=== PATIENT | female | born 1955 | race Caucasian/White ===

== ENCOUNTER 2020-02-17 09:15 | Outpatient (REF) | payer OTHER, SELFPAY | END 2020-02-17 09:16 | disposition home or self-care (01) | LOC: HO.WFDLNP 09:15 | PROVIDERS: Visit Provider Family Medicine | DX: Z20.828 Contact with and (suspected) exposure to other viral communicable diseases (principal) | CPT/HCPCS: U0003 ==

== ENCOUNTER 2021-03-04 07:10 | Outpatient (REF) | payer MEDICARE, SELFPAY ==
[2021-03-04 10:34] LABS: MANUAL DIFF FLAG NO
[2021-03-04 10:41] LABS: Basophils Percent Auto 0.6 % (0-2); Eosinophils Absolute Auto 0.2 X10*3/uL (0.0-0.4); Eosinophils Percent Auto 4.3 % (0-4); Hematocrit 42.6 % (37.0-47.0); Hemoglobin 13.6 g/dl (12.0-16.0); Imm Gran Abs Auto 0.01 X10*3/uL (0.00-0.03); Imm Gran Pct Auto 0.2 % (0.0-0.4); Lymphocytes Absolute Auto 1.4 X10*3/uL (1.2-4.9); Lymphocytes Percent Auto 26.3 % (20-40); Mean Corpuscular HGB Conc 31.9 g/dl (31.0-35.0); Mean Platelet Volume 9.6 fL (9.4-12.3); Monocytes Absolute Auto 0.6 X10*3/uL (0.1-1.2); Monocytes Percent Auto 10.6 % (2-11); Platelet Count 216 X10*3/uL (160-400); Red Blood Count 4.53 X10*6/uL (4.20-5.50); Red Cell Distribution Width 13.8 % (11.0-16.0); White Blood Count 5.2 X10*3/uL (4.8-10.8)
[2021-03-04 11:13] LABS: Alanine Aminotransferase 15 U/L (0-31); Albumin Level 4.2 g/dL (3.5-5.0); Alkaline Phosphatase 64 U/L (39-117); Anion Gap 12 (12-20); Aspartate Amino Transferase 16 U/L (5-31); Bilirubin Total 0.5 mg/dL (0.0-1.0); Blood Urea Nitrogen 21 mg/dL (9-16); Calcium 9.5 mg/dL (8.4-10.2); Carbon Dioxide 28 mmol/L (22-29); Chloride 107 mmol/L (96-108); Cholesterol 178 mg/dL; Estimated Glomerular Filt Rate 54; Glucose Fasting 103 mg/dL (60-99); HDL Cholesterol 41 mg/dL; LDL Cholesterol Calculated 113 mg/dl; Potassium 4.7 mmol/L (3.3-5.1); Sodium 142 mmol/L (135-145); Total Protein 6.7 g/dL (6.5-8.0); Triglycerides 124 mg/dL
[2021-03-04 11:27] LABS: Free T4 (Free Thyroxine) 1.03 ng/dL (0.71-1.85); Vitamin D 25-OH Total 21.5 ng/mL (>30)
[2021-03-05 16:02] LABS: Calcium (PTHI) 9.3 mg/dL (8.6-10.4); PTHI 82 pg/mL (14-64)
[2021-03-06 02:41] LABS: Triiodothyronine T3 Total 143 ng/dL (76-181)
== END 2021-03-04 07:11 | disposition home or self-care (01) ==
LOC: HO.WFDLDS 07:10
PROVIDERS: Visit Provider Family Medicine
DX: Z00.00 Encounter for general adult medical examination without abnormal findings (principal); E03.9 Hypothyroidism, unspecified; E55.9 Vitamin D deficiency, unspecified; N20.0 Calculus of kidney
CPT/HCPCS: 36415; 80053; 80061; 82306; 83970; 84100; 84439; 84443; 84480; 85025

== ENCOUNTER 2021-06-14 08:19 | Outpatient (REF) | payer MEDICARE, SELFPAY ==
[2021-06-14 12:09] LABS: Anion Gap 11 (12-20); Blood Urea Nitrogen 24 mg/dL (9-16); Calcium 9.3 mg/dL (8.4-10.2); Carbon Dioxide 27 mmol/L (22-29); Chloride 107 mmol/L (96-108); Estimated Glomerular Filt Rate 59; Glucose Fasting 97 mg/dL (60-99); Potassium 4.1 mmol/L (3.3-5.1); Sodium 141 mmol/L (135-145)
[2021-06-14 12:21] LABS: Estimated Average Glucose 117 mg/dL; Hemoglobin A1c % 5.7 %
[2021-06-14 12:31] LABS: Vitamin D 25-OH Total 26.3 ng/mL (>30)
== END 2021-06-14 08:20 | disposition home or self-care (01) ==
LOC: HO.WFDLDS 08:19
PROVIDERS: Visit Provider Family Medicine
DX: E55.9 Vitamin D deficiency, unspecified (principal); R73.01 Impaired fasting glucose
CPT/HCPCS: 36415; 80048; 82306; 83036

== ENCOUNTER 2021-09-14 10:39 | Outpatient (REF) | payer MEDICARE, SELFPAY ==
[2021-09-14 14:05] LABS: Estimated Average Glucose 117 mg/dL; Hemoglobin A1c % 5.7 %
[2021-09-14 14:41] LABS: Vitamin D 25-OH Total 32.2 ng/mL (>30)
== END 2021-09-14 10:40 | disposition home or self-care (01) ==
LOC: HO.WFDLDS 10:39
PROVIDERS: Visit Provider Family Medicine
DX: R73.01 Impaired fasting glucose (principal); E55.9 Vitamin D deficiency, unspecified
CPT/HCPCS: 36415; 82306; 83036

== ENCOUNTER → 2021-09-30 07:09 | Outpatient (REF) | payer MEDICARE, SELFPAY ==
--- NOTE | 2021-09-30 07:11 | HM_ITS ---
Conclusion: 1. Patient was monitored for total period of 5 days and 23 hours 2. Baseline was normal sinus rhythm with average heart of 62 beats per minute 3. 16 short runs of supraventricular ectopy ache consistent with most likely atrial tachycardia, longest of 12 beats 4. Total of 2016 PACs accounting for 0.32% account for occasional PACs 5. No patient reported events MTDD
== END ==
LOC: HO.CARD 07:09
PROVIDERS: Visit Provider Family Medicine
DX: R00.2 Palpitations (principal)
CPT/HCPCS: 93242

== ENCOUNTER 2021-11-01 12:06 | Outpatient (REF) | payer MEDICARE, SELFPAY ==
[2021-11-01 13:42] LABS: Anion Gap 13 (12-20); Blood Urea Nitrogen 24 mg/dL (9-16); Calcium 9.3 mg/dL (8.4-10.2); Carbon Dioxide 28 mmol/L (22-29); Chloride 105 mmol/L (96-108); Estimated Glomerular Filt Rate > 60; Glucose Random 100 mg/dL (60-115); Phosphorus 3.3 mg/dL (2.7-4.5); Potassium 4.5 mmol/L (3.3-5.1); Sodium 141 mmol/L (135-145)
[2021-11-01 14:04] LABS: Vitamin D 25-OH Total 31.4 ng/mL (>30)
[2021-11-02 12:48] LABS: Calcium (PTHI) 9.3 mg/dL (8.6-10.4); PTHI 67 pg/mL (16-77)
== END 2021-11-01 12:07 | disposition home or self-care (01) ==
LOC: HO.WFDLDS 12:06
PROVIDERS: PCP Family Medicine; Visit Provider Internal Medicine Endocrinology, Diabetes & Metabolism
DX: E21.3 Hyperparathyroidism, unspecified (principal)
CPT/HCPCS: 36415; 80048; 82306; 83970; 84100

== ENCOUNTER → 2022-02-07 14:03 | Outpatient (BNVA) | payer MEDICARE, SELFPAY | PROVIDERS: PCP Family Medicine; Referring Provider Family Medicine; Visit Provider Internal Medicine | DX: I49.1 Atrial premature depolarization (principal); Z82.49 Family history of ischemic heart disease and other diseases of the circulatory system | CPT/HCPCS: 93005; 99202 ==

== ENCOUNTER → 2022-02-15 10:14 | Outpatient (REF) | payer MEDICARE, SELFPAY ==
--- NOTE | 2022-02-15 10:23 | CA_ITS ---
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 The calculated ejection fraction is 58% by biplane method. - No obvious valvular pathology seen on this study. Findings Left Ventricle Normal left ventricular cavity size. The left ventricular systolic function is normal. The calculated ejection fraction is 58% by biplane method. There is no evidence of regional wall motion abnormalities. Diastolic function is normal for age. There is mild septal asymmetric hypertrophy. Right Ventricle Normal right ventricular cavity size and systolic function. Atria Top-normal left atrial size. The right atrium is normal in size. Aortic Valve There is a normal trileaflet aortic valve. There is no aortic valve stenosis. There is trace (trivial) aortic valve regurgitation. Mitral Valve The mitral valve appears normal. There is no mitral valve regurgitation. There is no mitral valve stenosis. Pulmonic Valve The pulmonic valve is likely normal. There is trace pulmonic valve regurgitation. Tricuspid Valve There is trace tricuspid valve regurgitation. There is no evidence of pulmonary hypertension. Great Vessels The asc aorta is normal in size. Venous The inferior vena cava is normal in size and collapses greater than 50% with inspiration. Pericardium/Pleural There is no evidence of pericardial effusion. Prior Study Comparison No prior study available for comparison. Recommendations, Care & Conclusions No obvious valvular pathology seen on this study. Measurements 2D Linear Measurements IVSd: 1.07 0.6-0.9/0.6-1.0 cm LVIDd: 3.93 3.9-5.3/4.2-5.9 cm LVIDd Index: 2.12 2.4-3.2/2.2-3.1 cm/m2 LVIDs: 2.27 2.0-3.6 cm LVPWd: 0.88 0.7-1.1 cm LA Diam: 2.70 2.7-3.8/3.0-4.0 cm LAIDs Index: 1.46 1.5-2.3 cm/m2 LV Mass: 148.63 67-162/88-224 g LV Mass Index: 80.34 43-95/49-115 g/m2 LVOT Diam: 2.00 3.0+(-)1.3 cm 2D Systolic Function EF 4C: 55.20 >55% EF 2C: 60.10 >55% EF BiP: 57.70 >55% Mitral Valve MV Pk E: 0.91 MV PK A: 0.93 MV Decel Time: 223.00 E/A: 1.00 E'Lateral: 5.98 E'Medial: 5.66 E/E' Med: 16.00 E/E' Lat: 15.20 PHT: 65.00 MVA PHT: 3.38 Decel Daniels: 4.08 Aortic Valve AoV Pk Taras: 1.12 AoV Mn Taras: 0.79 AoV VTI: 0.26 AoV Pk Grad: 5.00 Aov Mn Grad: 3.00 ARY Cont.VTI: 2.33 LVOT LVOT Pk Taras: 0.93 LVOT Mn Taras: 0.61 LVOT VTI: 0.19 LVOT Pk Grad: 3.00 LVOT Mn Grad: 2.00 LVOT Diam: 2.00 LVOT Area: 3.14 Diastolic Function MV Pk E: 0.91 MV Pk A: 0.93 E/A: 1.00 E'Medial: 5.66 E/E' Med: 16.00 E' Laterial: 5.98 E/E' Lat: 15.20 Right Ventricle TAPSE (mm): 22.00 TVS' Taras: 11.50 Tricuspid Valve TR Pk Taras: 2.46 TR Pk Grad: 24.00 RA Press: 3.00 RVSP: 27.00 Great Vessels Aorta Sinus of Valsalva: 3.73 2.0-3.[address] Ridge: 2.78 1.7-3.4 cm Ao Asc: 3.60 2.1-3.4 cm Ao Arch: 3.40 Updated in Other Vendor System with Status of Final Fan Moreno MD electronically signed on 02/17/2022 11:35:03 AM with status of Final
== END ==
LOC: HO.CARD 10:14
PROVIDERS: Visit Provider Internal Medicine
DX: I49.1 Atrial premature depolarization (principal)
CPT/HCPCS: 93306

== ENCOUNTER 2022-05-02 09:44 | Outpatient (REF) | payer MEDICARE, SELFPAY ==
[2022-05-02 12:08] LABS: Alanine Aminotransferase 14 U/L (0-31); Albumin Level 4.2 g/dL (3.5-5.0); Alkaline Phosphatase 62 U/L (39-117); Anion Gap 14 (12-20); Aspartate Amino Transferase 17 U/L (5-31); Bilirubin Total 0.8 mg/dL (0.0-1.0); Blood Urea Nitrogen 22 mg/dL (9-16); Calcium 9.3 mg/dL (8.4-10.2); Carbon Dioxide 25 mmol/L (22-29); Chloride 107 mmol/L (96-108); Cholesterol 184 mg/dL; Estimated Glomerular Filt Rate > 60; Glucose Fasting 97 mg/dL (60-99); HDL Cholesterol 48 mg/dL; LDL Cholesterol Calculated 109 mg/dl; Potassium 4.4 mmol/L (3.3-5.1); Sodium 142 mmol/L (135-145); Total Protein 6.5 g/dL (6.5-8.0); Triglycerides 138 mg/dL
[2022-05-02 12:24] LABS: TSH reflex Free T4 1.94 uIU/mL (0.32-4.0)
== END 2022-05-02 09:45 | disposition home or self-care (01) ==
LOC: HO.WFDLDS 09:44
PROVIDERS: Visit Provider Family Medicine
DX: Z00.00 Encounter for general adult medical examination without abnormal findings (principal)
CPT/HCPCS: 36415; 80053; 80061; 84443

== ENCOUNTER 2022-05-04 11:47 | Outpatient (REF) | payer MEDICARE, SELFPAY ==
[2022-05-04 14:04] LABS: Appearance Urine Clear; Color Urine Yellow; Glucose Urine UA Negative (Negative); Leukocyte Esterase Urine Moderate (2+) (Negative); Nitrite Urine Negative (Negative); UMIC TRIGGER UA YES; Urine Blood Negative (Negative); Urine Ketones Negative (Negative); Urine Protein Negative (Neg-Trace)
[2022-05-04 14:25] LABS: Bacteria Urine None Seen (None Seen); Hyaline Casts Urine 0-2 /LPF (0-2); RBC Urine 0-2 /HPF (0-2); WBC Urine 0-5 /HPF (0-5)
[2022-05-04 14:27] LABS: Creatinine Urine 102.24 mg/dL; Microalbum/Creatinine Ratio Ur 5.8 ug/mg cr
== END 2022-05-04 11:48 | disposition home or self-care (01) ==
LOC: HO.WFDLNP 11:47
PROVIDERS: Visit Provider Family Medicine
DX: I10 Essential (primary) hypertension (principal)
CPT/HCPCS: 81001; 81003; 82043

== ENCOUNTER 2022-06-09 13:00 | Outpatient (RCR) | payer MEDICARE, SELFPAY ==
[2022-04-04 09:02] VITALS: PULSE 75; O2SAT 98
== END 2023-04-20 08:47 | disposition home or self-care (01) ==
LOC: HO.PTWFD 13:00
PROVIDERS: PCP Family Medicine; Visit Provider Family Medicine
DX: M25.512 Pain in left shoulder (principal)
CPT/HCPCS: 97035; 97110; 97140; 97150; 97161; 97535

== ENCOUNTER → 2022-06-14 13:22 | Outpatient (BNVA) | payer MEDICARE, SELFPAY | PROVIDERS: PCP Family Medicine; Referring Provider Family Medicine; Visit Provider Nurse Practitioner Family | DX: I25.10 Atherosclerotic heart disease of native coronary artery without angina pectoris (principal); I25.84 Coronary atherosclerosis due to calcified coronary lesion; R06.02 Shortness of breath; I10 Essential (primary) hypertension; I47.1 Supraventricular tachycardia; E78.5 Hyperlipidemia, unspecified; R73.03 Prediabetes; Z82.49 Family history of ischemic heart disease and other diseases of the circulatory system | CPT/HCPCS: 99212 ==

== ENCOUNTER 2022-07-06 11:44 | Outpatient (REF) | payer MEDICARE, SELFPAY ==
[2022-07-06 14:52] LABS: Albumin Level 4.1 g/dL (3.5-5.0); Anion Gap 12 (12-20); Blood Urea Nitrogen 22 mg/dL (9-16); Carbon Dioxide 25 mmol/L (22-29); Chloride 109 mmol/L (96-108); Estimated Glomerular Filt Rate > 60; Glucose Random 131 mg/dL (60-115); Phosphorus 2.8 mg/dL (2.7-4.5); Potassium 4.3 mmol/L (3.3-5.1); Sodium 142 mmol/L (135-145)
[2022-07-06 15:01] LABS: Vitamin D 25-OH Total 33.5 ng/mL (>30)
[2022-07-08 14:58] LABS: Calcium (PTHI) 9.2 mg/dL (8.6-10.4); PTHI 51 pg/mL (16-77)
== END 2022-07-06 11:45 | disposition home or self-care (01) ==
LOC: HO.WFDLDS 11:44
PROVIDERS: Absent Provider Family Medicine; Visit Provider Internal Medicine Endocrinology, Diabetes & Metabolism
DX: E21.0 Primary hyperparathyroidism (principal)
CPT/HCPCS: 36415; 80048; 82040; 82306; 83970; 84100

== ENCOUNTER 2022-07-22 12:52 | Outpatient (REF) | payer MEDICARE, SELFPAY ==
[2022-07-22 13:57] LABS: Hematocrit 41.8 % (37.0-47.0); Hemoglobin 13.4 g/dl (12.0-16.0); Mean Corpuscular HGB Conc 32.1 g/dl (31.0-35.0); Mean Corpuscular Hemoglobin 29.7 pg (27.0-33.0); Mean Corpuscular Volume 92.7 fL (80.0-98.0); Platelet Count 188 X10*3/uL (160-400); Red Blood Count 4.51 X10*6/uL (4.20-5.50); Red Cell Distribution Width 13.9 % (11.0-16.0); White Blood Count 7.5 X10*3/uL (4.8-10.8)
[2022-07-22 14:38] LABS: Anion Gap 11 (12-20); Blood Urea Nitrogen 24 mg/dL (9-16); Carbon Dioxide 28 mmol/L (22-29); Chloride 107 mmol/L (96-108); Estimated Glomerular Filt Rate > 60; Glucose Random 79 mg/dL (60-115); Potassium 4.5 mmol/L (3.3-5.1); Sodium 141 mmol/L (135-145)
== END 2022-07-22 12:53 | disposition home or self-care (01) ==
LOC: HO.WFDLDS 12:52
PROVIDERS: Visit Provider Nurse Practitioner Family
DX: R42 Dizziness and giddiness (principal)
CPT/HCPCS: 36415; 80048; 85027

== ENCOUNTER 2022-08-29 09:00 | Outpatient (RCR) | payer MEDICARE, SELFPAY ==
[2022-08-18 08:04] VITALS: PULSE 63; O2SAT 100
--- NOTE | 2022-08-30 15:46 | MHC.PT.EP ---
[facility] [place] [facility] [place] [facility] [place] [facility] [address] Aravind Sims [address] [phone] F: [phone] F: [phone] F: [phone] F: [phone] Physical Therapy Plan of Care Date of Evaluation: Date of Surgery: Diagnosis: Dizziness and Giddiness referred by Dr. Palacios PCP Assessment: Pt is a 67 y/o female with PMH significant for supraventricular tachycardia, HTN, high cholesterol, referred to PT for dizziness and giddiness date of referral on 08/01/22 referred to PT from PCP Dr. Palacios. Pt exhibits positive (+) R Hallpike with upbeat torsional nystagmus, impaired confidence with ambulation, decreased tolerance for functional mobility. Pt verbalizes use of topical pain medication for tooth pain which she has since stopped, questions this as factor contributing to her symptoms early on. Pt would benefit from attending skilled PT services at a frequency of 1x/week x 4 weeks to address impairment, implement HEP, and restore mobility for daily function. Post evaluation, Radha was guided through R Anthony maneuver with good tolerance, (+) reduction in sx with repeated attempts of treatment in the office. She will be seen in the office in a few days to assess her response and will likely be educated in a the same home program to address R posterior canal otolith repositioning. She verbalized relief of sx post evaluation and education of findings. Frequency and Duration: The patient will be seen 1x/week x 4 weeks Short Term Goals: 1. Initiate HEP. 2. Negative Hallpike testing. 3. Resume household tasks MOD I no vertigo sx. Supervisor Cell Efficiency Goals: 1. I HEP/self care. 2. Negative Hallpike testing. 3. Resume walking program MOD I. Treatment Plan: Modalities to reduce pain, spasms and effusion. Manual therapy to restore motion and function. Therapeutic exercise to improve strength and flexibility. Neuromuscular re-education for posture and balance. Therapeutic activities to return to functional activities of daily living. Electronically signed by: Guadalupe Elias, PT, DPT Please sign and return to therapist. Thank you for your referral.
== END 2023-03-14 11:21 | disposition home or self-care (01) ==
LOC: HO.PTWFD 09:00
PROVIDERS: PCP Family Medicine; Visit Provider Family Medicine
DX: R42 Dizziness and giddiness (principal)
CPT/HCPCS: 97110; 97162; 97535

== ENCOUNTER 2022-09-28 09:45 | Outpatient (REF) | payer MEDICARE, SELFPAY | END 2022-09-28 09:46 | disposition home or self-care (01) | LOC: HO.WFDLDS 09:45 | PROVIDERS: Visit Provider Nurse Practitioner Family | DX: E78.5 Hyperlipidemia, unspecified (principal) | CPT/HCPCS: 36415; 80061 ==

== ENCOUNTER 2022-10-03 11:00 | Outpatient (AMB) | payer MEDICARE, SELFPAY ==
--- NOTE | 2022-10-03 11:20 | MHC.OFFVIS ---
Intake Vital Signs 10/03/22 11:21 Height 5 ft 1 in Weight 199 lb 4.766 oz BMI 37.7 BP 140/76 H Blood Pressure Location Lt brachial Position Sitting Pulse 64 Intake Visit Reasons: 3 month follow up Intake Note: 3 month follow up Lieutenant General Required: No Accompanied by: Self / Same As Patient Allergies No Known Allergies Allergy (Verified 10/03/22 11:21) Medication List - Last Reconciled 10/03/22 by Fan Moreno MD aspirin 81 mg PO DAILY cholecalciferol (vitamin D3) 50 mcg PO .qod 30 days levothyroxine 50 mcg PO DAILY 90 days lisinopril 5 mg PO DAILY 90 days metoprolol succinate ER 100 mg PO DAILY 90 days simvastatin 40 mg PO BEDTIME 30 days HPI HPI Comments History of Present Illness Details Radha returns for follow-up. Recently seen in consultation regarding palpitations as well as strong family history of coronary disease. She has undergone workup including Holter monitor, calcium scoring CT scan and coronary CTA. Overall, generally feeling good. Rare palpitations. Otherwise no chest pains or anything really concerning. She has hypertension on medications. Also on statins. [facility] Medical History Essential hypertension Hyperlipidemia SVT (supraventricular tachycardia) Surgical History History of extraction of renal calculus History of hysterectomy History of tonsillectomy History of wisdom tooth extraction Family History Father Heart attack Mother No problems noted. Social History Housing: House Alcohol intake: current Alcohol intake frequency: holidays/special occasions only Patient Tobacco Use Status: Never used Tobacco e-Cigarette/Vaping Use: Never Used Second Hand Smoke Exposure: No service: No Current occupational status: retired Current occupational exposures/hazards: No Cognitive needs: No Hearing needs: No Vision needs: Yes Review of Systems Const Denies weakness ENT Denies dizziness Card Denies chest pain, Denies chest pain with activity, Denies syncope, Denies rapid heart rate, Denies pedal edema, Denies edema, Denies leg edema, Denies lightheadedness, Denies palpitations, Denies dyspnea, Denies dyspnea on exertion and Denies orthopnea Resp Denies cough, Denies dyspnea and Denies dyspnea on exertion GI Denies hematochezia and Denies change in stool character Musc Denies abnormal gait, Denies muscle cramps, Denies muscle weakness, Denies numbness, Denies radiating pain into limb and Denies tingling Neuro Denies abnormal gait, Denies dizziness, Denies syncope, Denies numbness, Denies tingling and Denies weakness Endo Denies palpitations Physical Exam Vital Signs: Last Vital Signs Pulse 64 10/03/22 11:21 BP 140/76 H 10/03/22 11:21 BMI result Body Mass Index 37.7 Const General: comfortable and no acute distress Orientation/consciousness: patient oriented x3 HEENT Other: Unremarkable Head: Yes normal to inspection Neck Neck: Yes normal visual inspection Chest Chest palpation & inspection: normal inspection of the chest Resp Auscultation: clear to auscultation bilaterally Cardio Palpation: normal PMI Heart sounds: S1 normal heart sound present, S2 normal heart sound present, no gallops, no murmurs and no rubs GI Palpation (GI): Soft to palpation Back/Spine/Pelvis Other: unremarkable Skin General skin exam: no rashes or lesions noted Neuro General: patient oriented x3 Extrem General: Yes normal to inspection Psych Mental Status: mental status grossly normal Assessment & Plan Assessment & Plan (1) Coronary artery calcification: Code(s): I25.10 - Atherosclerotic heart disease of [place] coronary artery without angina pectoris; I25.84 - Coronary atherosclerosis due to calcified coronary lesion (2) PAC (premature atrial contraction): Code(s): I49.1 - Atrial premature depolarization Plan Coronary CTA shows minimal calcification at the ostial left main with less than 25% stenosis. Otherwise normal coronaries. Echocardiogram with LVEF of 58%. No wall motion abnormalities. Unremarkable valvular structure and function. Holter shows underlying sinus rhythm with an average rate of 62/Min. Brief runs of atrial tachycardia. Nothing sustained. Overall, minimal coronary disease as above. She is on aspirin and statins. Was on simvastatin 20 mg but that has now been increased to 40 mg daily. Last LDL 84 mg/dL. That is better than the previous value of 109 mg/dL. She would prefer to stay on the statin as opposed to Lipitor or Crestor. Follow-up lipids through her own PCP. Weight loss. Otherwise, we can see her in about 2 years. In the interim, she will call with concerns. Coding Level of Care Code Est Pt Level 3 (18602) Diagnoses Coronary artery calcification I25.10; I25.84 PAC (premature atrial contraction) I49.1
[2022-10-03 11:21] VITALS: BP 140/76; PULSE 64; BMI 37.7
== END 2022-10-03 11:42 | disposition home or self-care (01) ==
PROVIDERS: Visit Provider Internal Medicine
DX: I25.10 Atherosclerotic heart disease of native coronary artery without angina pectoris (principal); I25.84 Coronary atherosclerosis due to calcified coronary lesion; I49.1 Atrial premature depolarization
CPT/HCPCS: 99213

== ENCOUNTER → 2022-10-03 11:00 | Outpatient (BNVA) | payer MEDICARE, SELFPAY | PROVIDERS: Visit Provider Internal Medicine | DX: I25.10 Atherosclerotic heart disease of native coronary artery without angina pectoris (principal); I25.84 Coronary atherosclerosis due to calcified coronary lesion; I49.1 Atrial premature depolarization | CPT/HCPCS: 99212 ==

== ENCOUNTER 2022-12-01 11:39 | Outpatient (AMB) | payer MEDICARE, SELFPAY ==
[2022-12-01 11:41] VITALS: BP 128/72; PULSE 68; RESP 12; TEMP 36.1; O2SAT 98; BMI 37.5
--- NOTE | 2022-12-01 11:41 | A.OFFPC_ITS ---
Vital Signs 12/01/22 11:41 Height 5 ft 1 in Weight 198 lb 4 oz BMI 37.5 BP 128/72 Blood Pressure Location Lt brachial Position Sitting Respiration 12 Pulse 68 Pulse Source Pulse Oximeter Temp 97 F Temp Source Temporal Artery Scan Pulse Oximetry (%) 98 Oxygen Delivery Method Room Air Intake Visit Reasons: f/u hypertension and chronic conditions Intake Note: Patient states that at the end of September she had another kidney stone. Patient states that she went to [facility] and by th time the ER doctor seen her the stone had passed. Body Specialist Required: No Accompanied by: Self / Same As Patient Allergies No Known Allergies Allergy (Verified 12/01/22 11:49) Medication List - Last Reconciled 12/01/22 by Gumaro Palacios MD aspirin 81 mg PO DAILY cholecalciferol (vitamin D3) 50 mcg PO .qod 30 days levothyroxine 50 mcg PO DAILY 90 days lisinopril 5 mg PO DAILY 90 days metoprolol succinate ER 100 mg PO DAILY 90 days simvastatin 40 mg PO BEDTIME 30 days Tobacco use date assessed: 05/26/22 Fall risk assessment: No Falls in past year Last assessed Fall Risk: 12/01/22 Dental Screening Dental Screen Date: 12/01/22 Did you have a dental visit in the last 12 months?: Yes Did you have a dental problem in the last 6 months where you did not have access to dental care?: No Was dental information given to patient?: Patient has dentist HPI f/u hypertension and chronic conditions HPI Details 67 y/o female presents to f/u hypertensi on and chronic conditions. Blood pressure today 128/72. She is on lisinopril 5mg and metoprolol 100mg daily. Had recently seen Cardiology and they had increased her simvastatin. LDL cholesterol have improved. HPI Comments History of Present Illness Details Documentation assistance for Gumaro Palacios MD, was provided by Doyle Donis,? Wetlands Conservation Laborer on 12/01/2022 12:02 PM EST. Mariscal, Dr. Palacios, have read, observed, and verified documentation. [facility] Medical History SVT (supraventricular tachycardia) Hyperlipidemia Essential hypertension Surgical History History of tonsillectomy History of wisdom tooth extraction History of extraction of renal calculus History of hysterectomy Family History Father Heart attack Mother No problems noted. Social History Housing: House Alcohol intake: current Alcohol intake frequency: holidays/special occasions only Patient Tobacco Use Status: Never used Tobacco e-Cigarette/Vaping Use: Never Used Second Hand Smoke Exposure: No service: No Current occupational status: retired Current occupational exposures/hazards: No Cognitive needs: No Hearing needs: No Vision needs: Yes Questionnaire Thrive Questionnaire Date Thrive assessed: 05/09/22 ELIZABETH-7 AMB Questionnaire ELIZABETH-7 Date ELIZABETH - 7 assessed: 05/09/22 Source: Developed by Drs. Alan Styles, Kirstie Elias, Kyle Kraft and colleagues, with an educational carolina from [place]. Review of Systems Const Denies chills, Denies fatigue, Denies fever(s), Denies headache(s) and Denies weakness ENT Denies dizziness and Denies headache(s) Card Denies chest pain, Denies lightheadedness, Denies dyspnea and Denies other (Palpitations) Resp Denies cough, Denies dyspnea, Denies wheezing and Denies other ( shortness of breath) Musc Denies numbness and Denies tingling Neuro Denies dizziness, Denies headache(s), Denies numbness, Denies tingling, Denies paresthesias and Denies weakness Psych Denies anxiety and Denies depression Endo Denies fatigue Aller/Immun Denies wheezing Physical exam (Primary Care) Vital Signs: Last Vital Signs Temp 97 F 12/01/22 11:41 Pulse 68 12/01/22 11:41 Resp 12 12/01/22 11:41 BP 128/72 12/01/22 11:41 Pulse Ox 98 12/01/22 11:41 Oxygen Delivery Method Room Air 12/01/22 11:41 BMI result Body Mass Index 37.5 Tobacco/Smoking Status: Tobacco use Status Tobacco use date assessed 05/26/22 12/01/22 11:51 Patient Tobacco Use Status Never used Tobacco 12/01/22 11:51 e-Cigarette/Vaping Use Never Used 12/01/22 11:51 Thrive Assessment: Date of Thrive Assessment Date Thrive assessed 05/09/22 12/01/22 11:51 Const General: no acute distress and well developed Nutritional Appearance: well nourished Orientation/consciousness: patient oriented x3 HENMT Head: Yes normocephalic and Yes atraumatic Eyes General: appearance normal, both eyes and all related structures Pupils: Equal, round and reactive pupils present EOM: EOMs intact bilaterally Resp Effort & Inspection: normal respiratory effort Auscultation: clear to auscultation bilaterally Cardio Rate: regular rate Rhythm: regular rhythm Heart sounds: S1 normal heart sound present, S2 normal heart sound present, no gallops, no murmurs and no rubs Neuro General: patient oriented x3 and gait normal Cranial nerves: Yes Equal, round and reactive pupils present Psych Affect: normal affect Assessment and Plan Assessment & Plan (1) Essential hypertension: Code(s): I10 - Essential (primary) hypertension Plan: Blood pressure is controlled. Goal is less than 130/80 Continue current medication regimen (2) Coronary artery calcification: Code(s): I25.10 - Atherosclerotic heart disease of [place] coronary artery without angina pectoris; I25.84 - Coronary atherosclerosis due to calcified coronary lesion Plan: Stable LDL goal is less than 70 and she has been above this so simvastatin was increased by cardiology. Significant improvement but still above goal I encouraged exercise and weight loss and a diet low in saturated fats and cholesterol Will continue to monitor Follow-up with Cardiology as recommended (3) Hyperlipidemia: Code(s): E78.5 - Hyperlipidemia, unspecified Plan: As above Recheck lipids prior to next visit (4) Kidney stones: Code(s): N20.0 - Calculus of kidney Plan: History of kidney stones Check urinalysis Hydrate well Orders: Orders UA and rflx microscopic Today N20.0 - Calculus of kidney Lipid Panel 10 Weeks I25.10 - Atherosclerotic heart disease of [place] coronary artery without angina pectoris, I25.84 - Coronary atherosclerosis due to calcified coronary lesion, Z00.00 - Encounter for general adult medical examination without abnormal findings Basic Metabolic Panel Fasting 10 Weeks I25.10 - Atherosclerotic heart disease of [place] coronary artery without angina pectoris, I25.84 - Coronary atherosclerosis due to calcified coronary lesion Coding Level of Care Code Est Pt Level 4 (58237) Diagnoses Essential hypertension I10 Coronary artery calcification I25.10; I25.84 Hyperlipidemia E78.5 Kidney stones N20.0
== END 2022-12-01 12:06 | disposition home or self-care (01) ==
PROVIDERS: PCP Family Medicine; Visit Provider Family Medicine
DX: I10 Essential (primary) hypertension (principal); I25.10 Atherosclerotic heart disease of native coronary artery without angina pectoris; I25.84 Coronary atherosclerosis due to calcified coronary lesion; E78.5 Hyperlipidemia, unspecified; N20.0 Calculus of kidney
CPT/HCPCS: 99214

== ENCOUNTER 2023-03-03 09:13 | Outpatient (REF) | payer MEDICARE, SELFPAY ==
[2023-03-03 13:19] LABS: Anion Gap 11 (12-20); Blood Urea Nitrogen 24 mg/dL (9-16); Calcium 9.2 mg/dL (8.4-10.2); Carbon Dioxide 27 mmol/L (22-29); Chloride 109 mmol/L (96-108); Cholesterol 136 mg/dL (<200); Estimated Glomerular Filt Rate > 60; Glucose Fasting 92 mg/dL (60-99); HDL Cholesterol 36 mg/dL (>40); LDL Cholesterol Calculated 78 mg/dL (<100); Potassium 4.4 mmol/L (3.3-5.1); Sodium 143 mmol/L (135-145); Triglycerides 112 mg/dL (<150)
== END 2023-03-03 09:14 | disposition home or self-care (01) ==
LOC: HO.WFDLDS 09:13
PROVIDERS: Visit Provider Family Medicine
DX: Z00.00 Encounter for general adult medical examination without abnormal findings (principal); I25.10 Atherosclerotic heart disease of native coronary artery without angina pectoris; I25.84 Coronary atherosclerosis due to calcified coronary lesion
CPT/HCPCS: 36415; 80048; 80061

== ENCOUNTER 2023-04-13 09:18 | Outpatient (AMB) | payer MEDICARE, SELFPAY ==
[2023-04-13 09:20] VITALS: BP 120/70; PULSE 65; O2SAT 98; BMI 37.6
--- NOTE | 2023-04-13 09:20 | A.OFFPC_ITS ---
Vital Signs 04/13/23 09:20 Height 5 ft 1 in Weight 199 lb BMI 37.6 BP 120/70 Blood Pressure Location Lt brachial Position Sitting Pulse 65 Pulse Source Pulse Oximeter Pulse Oximetry (%) 98 Oxygen Delivery Method Room Air Intake Visit Reasons: f/u hypertension and chronic conditions Intake Note: Patient is here to follow up on hypertension and chronic conditions. Patient is having bouts of vertigo. Allergies No Known Allergies Allergy (Verified 04/13/23 09:24) Tobacco use date assessed: 04/13/23 Fall risk assessment: No Falls in past year Last assessed Fall Risk: 04/13/23 HPI f/u hypertension and chronic conditions HPI Details 67 y/o female presents to f/u hypertensi on and chronic conditions. Blood pressure today 120/70. She is on lisinopril 5mg, metoprolol 100mg daily. Labs were drawn 03/03/23. Reviewed labs with pt. Triglycerides 112. TC 136. LDL 78. HDL low at 36. She is on simvastatin 40mg. Fasting glucose 92. A1c today 04/13/23 5.8%. Pt reports vertigo. She declines physical therapy today and states she will do her exercises at home. [facility] Medical History SVT (supraventricular tachycardia) Hyperlipidemia Essential hypertension Surgical History History of tonsillectomy History of wisdom tooth extraction History of extraction of renal calculus History of hysterectomy Family History Father Heart attack Mother No problems noted. Social History Housing: House Alcohol intake: current Alcohol intake frequency: holidays/special occasions only Patient Tobacco Use Status: Never used Tobacco e-Cigarette/Vaping Use: Never Used Second Hand Smoke Exposure: No service: No Current occupational status: retired Current occupational exposures/hazards: No Cognitive needs: No Hearing needs: No Vision needs: Yes Questionnaire Thrive Questionnaire Date Thrive assessed: 05/09/22 ELIZABETH-7 AMB Questionnaire ELIZABETH-7 Date ELIZABETH - 7 assessed: 05/09/22 Source: Developed by Drs. Alan LKirstie Walker, Kyle Kraft and colleagues, with an educational carolina from [employer]. Review of Systems Const Denies chills, Denies fatigue, Denies fever(s), Denies headache(s) and Denies weakness ENT Denies dizziness and Denies headache(s) Card Denies chest pain, Denies lightheadedness, Denies dyspnea and Denies other (Palpitations) Resp Denies cough, Denies dyspnea, Denies wheezing and Denies other ( shortness of breath) Musc Denies numbness and Denies tingling Neuro Denies dizziness, Denies headache(s), Denies numbness, Denies tingling, Denies paresthesias and Denies weakness Psych Denies anxiety and Denies depression Endo Denies fatigue Aller/Immun Denies wheezing Physical exam (Primary Care) Vital Signs: Last Vital Signs Pulse 65 04/13/23 09:20 BP 120/70 04/13/23 09:20 Pulse Ox 98 04/13/23 09:20 Oxygen Delivery Method Room Air 04/13/23 09:20 BMI result Body Mass Index 37.6 Tobacco/Smoking Status: Tobacco use Status Tobacco use date assessed 04/13/23 04/13/23 09:27 Patient Tobacco Use Status Never used Tobacco 04/13/23 09:27 e-Cigarette/Vaping Use Never Used 04/13/23 09:27 Thrive Assessment: Date of Thrive Assessment Date Thrive assessed 05/09/22 04/13/23 09:27 Const General: no acute distress and well developed Nutritional Appearance: well nourished Orientation/consciousness: patient oriented x3 [facility] Head: Yes normocephalic and Yes atraumatic Eyes General: appearance normal, both eyes and all related structures Pupils: Equal, round and reactive pupils present EOM: EOMs intact bilaterally Resp Effort & Inspection: normal respiratory effort Auscultation: clear to auscultation bilaterally Cardio Rate: regular rate Rhythm: regular rhythm Heart sounds: S1 normal heart sound present, S2 normal heart sound present, no gallops, no murmurs and no rubs Neuro General: patient oriented x3 and gait normal Cranial nerves: Yes Equal, round and reactive pupils present Psych Affect: normal affect Assessment and Plan Assessment & Plan (1) Essential hypertension: Code(s): I10 - Essential (primary) hypertension Plan: Blood?pressure?is?well?controlled.??Goal?is?less?than?140/90 Continue?current?medication (2) Hyperlipidemia: Code(s): E78.5 - Hyperlipidemia, unspecified Plan: LDL?cholesterol?is?fairly?well?controlled.??Goal?is?less?than?70 HDL?is?low?and?I?encouraged?exercise Continue?simvastatin (3) Pre-diabetes: Code(s): R73.03 - Prediabetes Plan: A1c?at?last?check?was?5.7% Today?A1c is?5.8%. Encouraged?working?on?a?diet?low?in?sugars?and?starches.??Exercise?and?weight?lo ss. Will?continue?to?monitor (4) Coronary artery calcification: Code(s): I25.10 - Atherosclerotic heart disease of [place] coronary artery without angina pectoris; I25.84 - Coronary atherosclerosis due to calcified coronary lesion Plan: As?above,?continue?simvastatin (5) Vertigo: Code(s): R42 - Dizziness and giddiness Plan: Patient?says?she?is?experiencing?vertigo?as?she?did?last?year.??Physical?therapy ?was?helpfu l.??She?declines?physical?therapy?today?and?says?she?will?find?her?paperwork?wit h?her?old?exercises?and?perform?them?herself. Just?FYI?for?now. I?let?her?know?that?she?can?contact?me?if?she?is?still?having?problems. Coding Level of Care Code Est Pt Level 4 (06866) Diagnoses Essential hypertension I10 Hyperlipidemia E78.5 Pre-diabetes R73.03 Coronary artery calcification I25.10; I25.84 Vertigo R42
== END 2023-04-13 10:48 | disposition home or self-care (01) ==
PROVIDERS: PCP Family Medicine; Visit Provider Family Medicine
DX: I10 Essential (primary) hypertension (principal); E78.5 Hyperlipidemia, unspecified; R73.03 Prediabetes; I25.10 Atherosclerotic heart disease of native coronary artery without angina pectoris; I25.84 Coronary atherosclerosis due to calcified coronary lesion; R42 Dizziness and giddiness
CPT/HCPCS: 99214

== ENCOUNTER 2023-07-04 08:58 | Outpatient (REF) | payer MEDICARE, SELFPAY ==
[2023-07-04 11:33] LABS: Appearance Urine Clear; Color Urine Yellow; Glucose Urine UA Negative (Negative); Leukocyte Esterase Urine Moderate (2+) (Negative); Nitrite Urine Negative (Negative); UMIC TRIGGER UA YES; Urine Blood Negative (Negative); Urine Ketones Negative (Negative); Urine Protein Negative (Neg-Trace)
[2023-07-04 11:36] LABS: Bacteria Urine None Seen (None Seen); Hyaline Casts Urine 0-2 /LPF (0-2); RBC Urine 0-2 /HPF (0-2)
[2023-07-04 12:22] LABS: Alanine Aminotransferase 16 U/L (0-31); Alkaline Phosphatase 57 U/L (39-117); Anion Gap 10 (12-20); Aspartate Amino Transferase 19 U/L (5-31); Bilirubin Total 0.4 mg/dL (0.0-1.0); Blood Urea Nitrogen 19 mg/dL (9-16); Calcium 9.2 mg/dL (8.4-10.2); Carbon Dioxide 28 mmol/L (22-29); Chloride 110 mmol/L (96-108); Estimated Glomerular Filt Rate > 60; Glucose Fasting 95 mg/dL (60-99); Microalbum/Creatinine Ratio Ur 6.9 ug/mg cr (<30); Potassium 4.4 mmol/L (3.3-5.1); Sodium 144 mmol/L (135-145); Total Protein 6.8 g/dL (6.5-8.0)
[2023-07-04 12:36] LABS: Free T4 (Free Thyroxine) 0.92 ng/dL (0.71-1.85); Thyroid Stimulating Hormone 1.49 uIU/mL (0.32-4.0)
[2023-07-05 06:28] LABS: Triiodothyronine T3 Total 78 ng/dL (76-181)
== END 2023-07-04 08:59 | disposition home or self-care (01) ==
LOC: HO.WFDLDS 08:58
PROVIDERS: Visit Provider Family Medicine
DX: Z00.00 Encounter for general adult medical examination without abnormal findings (principal); E03.9 Hypothyroidism, unspecified; I10 Essential (primary) hypertension
CPT/HCPCS: 36415; 80053; 81001; 82043; 82570; 84439; 84443; 84480

== ENCOUNTER 2023-07-14 09:23 | Outpatient (AMB) | payer MEDICARE, SELFPAY ==
--- NOTE | 2023-07-14 09:25 | MHC.PC.OV ---
Vital Signs 07/14/23 09:26 Height 5 ft 1 in Weight 197 lb BMI 37.2 BP 128/70 Blood Pressure Location Lt brachial Position Sitting Pulse 65 Pulse Source Pulse Oximeter Pulse Oximetry (%) 99 Oxygen Delivery Method Room Air Intake Visit Reasons: f/u pre-diabetes and chronic conditions Intake Note: Patient is here for prediabetes and chronic conditions, and needs refill on Vitamin D today, needs it by tomorrow. Allergies No Known Allergies Allergy (Verified 07/14/23 09:33) Medication List - Last Reconciled 07/14/23 by Gumaro Palacios MD aspirin 81 mg PO DAILY cholecalciferol (vitamin D3) 50 mcg PO .qod 30 days levothyroxine 50 mcg PO DAILY 90 days lisinopril 5 mg PO DAILY 90 days metoprolol succinate ER 100 mg PO DAILY 90 days simvastatin 40 mg PO BEDTIME 90 days Tobacco use date assessed: 07/14/23 Fall risk assessment: No Falls in past year Last assessed Fall Risk: 07/14/23 Dental Screening Dental Screen Date: 07/14/23 Did you have a dental visit in the last 12 months?: Yes Did you have a dental problem in the last 6 months where you did not have access to dental care?: No Was dental information given to patient?: Patient has dentist HPI f/u pre-diabetes and chronic conditions HPI Details 68 y/o female presents to f/u pre-diabetes and chronic conditions. Labs were drawn 07/04/23. Reviewed labs with pt. TSH level 1.49 uIU/mL and is on levothyroxine 50 mcg daily. Renal function is fine. Blood pressure today 128/70. She is on metoprolol 100mg, lisinopril 5mg daily. Pt reports abd. pain after not eating awhile and questions whether or not she has ulcers. HPI Comments History of Present Illness Details Documentation assistance for Gumaro Palacios MD, was provided by Doyle Donis, Generation Technologist on 07/14/2023 9:57 AM EST. Mariscal, Dr. Palacios, have read, observed, and verified documentation. PFSH Medical History SVT (supraventricular tachycardia) Hyperlipidemia Essential hypertension Surgical History History of tonsillectomy History of wisdom tooth extraction History of extraction of renal calculus History of hysterectomy Family History Father Heart attack Mother No problems noted. Social History Housing: House Alcohol intake: current Alcohol intake frequency: holidays/special occasions only Patient Tobacco Use Status: Never used Tobacco e-Cigarette/Vaping Use: Never Used Second Hand Smoke Exposure: No service: No Current occupational status: retired Current occupational exposures/hazards: No Cognitive needs: No Hearing needs: No Vision needs: Yes Questionnaire PHQ-9 Over the last 2 weeks, how often have you been bothered by any of the following problems? 1. Little interest or pleasure in doing things: not at all 2. Feeling down, depressed, or hopeless: not at all 3. Trouble falling or staying asleep, or sleeping too much: not at all 4. Feeling tired or having little energy: not at all 5. Poor appetite or overeating: not at all 6. Feeling bad about yourself - or that you are a failure or have let yourself or your family down: not at all 7. Trouble concentrating on things, such as reading the newspaper or watching television: not at all 8. Moving or speaking so slowly that other people could have noticed. Or the opposite - being so fidgety or restless that you have been moving around a lot more than usual: not at all 9. Thoughts that you would be better off or of hurting yourself in some way: not at all Total score: 0 Depression Screening Interpretation: Negative Depression Screening Done: Yes 24017 - PHQ-9 Billing: Yes Source: Developed by Drs. Alan Styles, Kirstie Elias, Kyle Kraft and colleagues, with an educational carolina from [employer]. Thrive Questionnaire Date Thrive assessed: 05/09/22 AUDIT C Alcohol Use Questionnaire (AUDIT-C) 1. How often do you have a drink containing alcohol?: 2-4 times a month 2. How many drinks containing alcohol do you have on a typical day when you are drinking?: 1 or 2 3. How often do you have six or more drinks on one occasion?: Never Total Score: 2 ELIZABETH-7 AMB Questionnaire ELIZABETH-7 Date ELIZABETH - 7 assessed: 07/14/23 Feeling nervous, anxious, or on edge: 0 = Not at all Not being able to stop or control worryin = Not at all Worrying too much about different things: 0 = Not at all Trouble relaxin = Not at all Being so restless that it is hard to sit still: 0 = Not at all Becoming easily annoyed or irritable: 0 = Not at all Feeling afraid as if something awful might happen: 0 = Not at all Total ELIZABETH-7 score (0-4 normal; 5-9 mild; 10-14 moderate; 15-21 severe): 0 Source: Developed by Drs. Alan Styles, Kirstie Elias, Kyle Kraft and colleagues, with an educational carolina from [employer]. ELIZABETH-7 Assessment Billing ELIZABETH-7 Assessment Tool: ELIZABETH-7 Assessment 50041 Review of Systems Const Denies chills, Denies fatigue, Denies fever(s), Denies headache(s) and Denies weakness ENT Denies dizziness and Denies headache(s) Card Denies dyspnea Resp Denies cough, Denies dyspnea, Denies wheezing and Denies other (shortness of breath) Musc Denies numbness and Denies tingling Neuro Denies dizziness, Denies headache(s), Denies numbness, Denies tingling and Denies weakness Psych Denies anxiety and Denies depression Endo Denies fatigue Aller/Immun Denies wheezing Physical exam (Primary Care) Vital Signs: Last Vital Signs Pulse 65 07/14/23 09:26 BP 128/70 07/14/23 09:26 Pulse Ox 99 07/14/23 09:26 Oxygen Delivery Method Room Air 07/14/23 09:26 BMI result Body Mass Index 37.2 Tobacco/Smoking Status: Tobacco use Status Tobacco use date assessed 07/14/23 07/14/23 09:36 Patient Tobacco Use Status Never used Tobacco 07/14/23 09:25 e-Cigarette/Vaping Use Never Used 07/14/23 09:25 PHQ-9: PHQ-9 Score PHQ-9: Total score 0 07/14/23 09:48 Depression Screening Interpretation: Negative Thrive Assessment: Date of Thrive Assessment Date Thrive assessed 05/09/22 07/14/23 09:25 Const General: well developed; No acute distress Nutritional Appearance: well nourished Orientation/consciousness: patient oriented x3 [facility] Head: Yes normocephalic and Yes atraumatic Eyes General: appearance normal, both eyes and all related structures Pupils: Equal, round and reactive pupils present EOM: EOMs intact bilaterally Resp Effort & Inspection: normal respiratory effort Auscultation: clear to auscultation bilaterally Cardio Rate: regular rate Rhythm: regular rhythm Heart sounds: S1 normal heart sound present, S2 normal heart sound present, no gallops, no murmurs and no rubs Neuro General: patient oriented x3 and gait normal Cranial nerves: Yes Equal, round and reactive pupils present Psych Affect: normal affect Results AMB Hemoglobin A1c AMB Hemoglobin A1c 6.0 % Last Edit by Maya Tripathi CMA on 07/14/23 10:07 Assessment and Plan Assessment & Plan (1) Essential hypertension: Code(s): I10 - Essential (primary) hypertension Plan: Blood?pressure?is?well?controlled.??Goal?is?less?than?130/90. Continue?current?medication (2) Hypothyroidism: Code(s): E03.9 - Hypothyroidism, unspecified Plan: Thyroid?levels?are?all?within?normal?range. Continue?current?dose?of?levothyroxine Patient?would?like?to?be?followed?for?thyroid?hormone?levels?here. Would?refer?back?to??[facility]?if?we?are?having?difficulty?controlling?thyroid?hormone?levels. (3) Pre-diabetes: Code(s): R73.03 - Prediabetes Plan: A1c?climbed?to?6.0% Encouraged?diet?lower?in?sugars?and?starches (4) GERD (gastroesophageal reflux disease): Code(s): K21.9 - Gastro-esophageal reflux disease without esophagitis Plan: GERD?and?epigastric?pain Check?H?pylori?stool?test Trial?omeprazole May?need?referral?to?GI (5) History of renal stone: Code(s): Z87.442 - Personal history of urinary calculi Plan: History?of?renal?stones?and?she?was?followed?by??[facility]?with?annual?renal?ultrasound?and?KUB. She?would?like?to?be?followed?here.??Currently?uncomplicated.??Will?get?renal?ultrasound?and?KUB. Would?refer?back?to??[facility]?if?any?concerns?or?problems (6) Epigastric pain: Code(s): R10.13 - Epigastric pain Plan: As?above,?trial?omeprazole?and?check?H?pylori?test May?need?referral?to?GI Orders: Orders Lipid Panel Today I25.10 - Atherosclerotic heart disease of [place] coronary artery without angina pectoris, I25.84 - Coronary atherosclerosis due to calcified coronary lesion, Z00.00 - Encounter for general adult medical examination without abnormal findings Vitamin D 25-OH Total Today E55.9 - Vitamin D deficiency, unspecified AMB Hemoglobin A1c Today Z13.9 - Encounter for screening, unspecified H pylori Ag Stool Today R10.13 - Epigastric pain Comprehensive [place]. Panel Fast Today I25.10 - Atherosclerotic heart disease of [place] coronary artery without angina pectoris, I25.84 - Coronary atherosclerosis due to calcified coronary lesion, Z00.00 - Encounter for general adult medical examination without abnormal findings Microalbumin, Random (w Creat) Today I10 - Essential (primary) hypertension UA and rflx microscopic Today I10 - Essential (primary) hypertension, Z00.00 - Encounter for general adult medical examination without abnormal findings US renal BI Today N20.0 - Calculus of kidney, Z87.442 - Personal history of urinary calculi XR KUB Today N20.0 - Calculus of kidney, Z87.442 - Personal history of urinary calculi Medications: New omeprazole 20 mg PO DAILY 30 days 30 caps 2RF Refilled cholecalciferol (vitamin D3) 50 mcg PO .qod 30 days 15 caps 4RF Coding Level of Care Code Est Pt Level 4 (92829) Diagnoses Essential hypertension I10 Hypothyroidism E03.9 Pre-diabetes R73.03 GERD (gastroesophageal reflux disease) K21.9 History of renal stone Z87.442 Epigastric pain R10.13 Additional Codes ELIZABETH-7 Assessment Billing - ELIZABETH-7 Assessment Tool: ELIZABETH-7 Assessment 21019 ([id number])
[2023-07-14 09:26] VITALS: BP 128/70; PULSE 65; O2SAT 99; BMI 37.2
== END 2023-07-14 10:13 | disposition home or self-care (01) ==
PROVIDERS: PCP Family Medicine; Visit Provider Family Medicine
DX: I10 Essential (primary) hypertension (principal); E03.9 Hypothyroidism, unspecified; R73.03 Prediabetes; K21.9 Gastro-esophageal reflux disease without esophagitis; Z87.442 Personal history of urinary calculi; R10.13 Epigastric pain
CPT/HCPCS: 83036; 99214

== ENCOUNTER 2023-09-27 14:17 | Outpatient (REF) | payer MEDICARE, SELFPAY | END 2023-09-27 14:18 | disposition home or self-care (01) | LOC: HO.LNP 14:17 | PROVIDERS: Visit Provider Family Medicine | DX: R10.13 Epigastric pain (principal) | CPT/HCPCS: 87338 ==

== ENCOUNTER 2023-09-29 10:48 | Outpatient (REF) | payer MEDICARE, SELFPAY ==
[2023-09-29 14:06] LABS: Appearance Urine Clear; Color Urine Yellow; Glucose Urine UA Negative (Negative); Leukocyte Esterase Urine Moderate (2+) (Negative); Nitrite Urine Negative (Negative); PH 6.5 (5.0-9.0); Specific Gravity - Urine 1.015 (1.005-1.025); UMIC TRIGGER UA YES; Urine Blood Trace (Negative); Urine Ketones Negative (Negative); Urine Protein Negative (Neg-Trace)
[2023-09-29 14:09] LABS: Bacteria Urine 4+ (None Seen); Hyaline Casts Urine 0-2 /LPF (0-2); RBC Urine 0-2 /HPF (0-2); WBC Urine 21-50 /HPF (0-5)
[2023-09-29 14:38] LABS: Creatinine Urine 108.81 mg/dL; Microalbum/Creatinine Ratio Ur 16.5 ug/mg cr (<30)
[2023-09-29 14:42] LABS: Alanine Aminotransferase 15 U/L (0-31); Alkaline Phosphatase 67 U/L (39-117); Anion Gap 11 (12-20); Aspartate Amino Transferase 18 U/L (5-31); Bilirubin Total 0.6 mg/dL (0.0-1.0); Blood Urea Nitrogen 20 mg/dL (9-16); Calcium 9.4 mg/dL (8.4-10.2); Carbon Dioxide 29 mmol/L (22-29); Chloride 106 mmol/L (96-108); Cholesterol 155 mg/dL (<200); Estimated Glomerular Filt Rate > 60; Glucose Fasting 93 mg/dL (60-99); HDL Cholesterol 43 mg/dL (>40); LDL Cholesterol Calculated 88 mg/dL (<100); Potassium 4.5 mmol/L (3.3-5.1); Sodium 141 mmol/L (135-145); Total Protein 6.9 g/dL (6.5-8.0); Triglycerides 122 mg/dL (<150)
[2023-09-29 14:50] LABS: Vitamin D 25-OH Total 37.2 ng/mL (>30)
== END 2023-09-29 10:49 | disposition home or self-care (01) ==
LOC: HO.WFDLDS 10:48
PROVIDERS: Visit Provider Family Medicine
DX: Z00.00 Encounter for general adult medical examination without abnormal findings (principal); I25.10 Atherosclerotic heart disease of native coronary artery without angina pectoris; I25.84 Coronary atherosclerosis due to calcified coronary lesion; E55.9 Vitamin D deficiency, unspecified; I10 Essential (primary) hypertension
CPT/HCPCS: 36415; 80053; 80061; 81001; 82043; 82306; 82570

== ENCOUNTER 2023-10-06 08:25 | Outpatient (AMB) | payer MEDICARE, SELFPAY ==
--- NOTE | 2023-10-06 08:50 | A.OFFPC_ITS ---
Vital Signs 10/06/23 08:53 Height 5 ft 1 in Weight 198 lb 2 oz BMI 37.4 BP 129/63 Blood Pressure Location Lt brachial Position Sitting Respiration 14 Pulse 63 Pulse Source Pulse Oximeter Temp 97.0 F Temp Source Temporal Artery Scan Pulse Oximetry (%) 96 Oxygen Delivery Method Room Air Intake Visit Reasons: CPE with f/u labs and health maint. Intake Note: Physical and lab results. Gypsum Roofer Required: No Allergies No Known Allergies Allergy (Verified 10/06/23 08:50) Tobacco use date assessed: 10/06/23 Dental Screening Dental Screen Date: 07/14/23 HPI HPI Comments History of Present Illness Details This is a 68-year-old female with a past medical history of SVT, hyperlipidemia, hypertension, GERD, osteopenia, prediabetes, hypothyroidism and nephrolithiasis presenting for a physical exam. Patient was seen by her PCP for epigastric pain and Griselda. She was placed on omeprazole 20 mg daily. She has been taking it since that time. Symptoms are much better. Seldom she feels a slight twinge. She uses Advil only occasionally. No vomiting, dysphagia, blood in stools or unexplained weight loss. She had labs recently including a negative H pylori stool antigen test. We reviewed her lab results. She has white blood cells and trace hematuria on urinalysis. Denies UTI symptoms. She has a history of kidney stones. Patient says she had KUB an ultrasound done at [facility] on 08/14/2023. Results requested. She was previously seen by Dr. Kruger. Bone density and mammogram done within the past year ordered by Dr. Lucas. She goes every 2 years for gynecologic exams per her insurance. Per patient her bone density test was stable from the previous. She takes vitamin-D. She does not take calcium due to kidney stones. She saw Dr. Moreno, and she is due to follow up in 10/13/2024. She gets occasional palpitations still, but they are infrequent since switching to extended release metoprolol. She denies chest pain or shortness of breath. Her LDL cholesterol is 88 on 40 mg of simvastatin daily. Her blood pressure is well-controlled. ROS: Constitutional: No unexplained weight loss, fever, chills, fatigue or night sweats. Eyes: No vision changes, blurry vision, double vision, eye pain, eye redness, eye discharge. ENT: No hearing loss, sneezing, congestion, runny nose or sore throat. Respiratory: No shortness of breath, cough or sputum production. Cardiovascular: No chest pain, chest pressure or chest discomfort. No pedal edema. Gastrointestinal: No anorexia, nausea, vomiting or diarrhea. No blood in stool. Genitourinary: No dysuria, hematuria, urinary frequency. Neurologic: No headache, dizziness, syncope, unilateral weakness, ataxia, numbness or tingling in the extremities. Musculoskeletal: No muscle pain, back pain, joint pain or swelling. Hematologic/Lymphatics: No bleeding or bruising. No painful lymph nodes. Skin: No rash or itching. Endocrine: No cold or heat intolerance. No polyuria or polydipsia. Psychiatric: No depression or anxiety. No SI/HI. Physical exam: Constitutional: Alert, in no distress. Head: Normocephalic. Eyes: Pupils are equal, round and reactive to light. Extraocular muscles intact. Ear, Nose and Throat: Canals clear. TMs normal. Normal nasal mucosa. No nasal discharge. No oral lesions. Neck: Supple, Full range of motion. No lymphadenopathy. No palpable thyroid masses. Respiratory: Clear to auscultation. Cardiovascular: S1 S2 regular. No murmurs. No carotid bruits. Gastrointestinal: Abdomen soft, non-tender, non-distended. Normal bowel sounds. No palpable masses. Genitourinary: No costovertebral angle tenderness. Neurologic: No focal neurological deficits. Symmetric patellar reflexes. Moves all extremities spontaneously. Sensation intact bilaterally. Skin: No rashes or lesions. Musculoskeletal: No gross deformities. Normal range of motion. Extremities: Warm and well perfused. No clubbing, cyanosis or edema. Psychiatric: Normal mood and affect [facility] Medical History SVT (supraventricular tachycardia) Hyperlipidemia Essential hypertension Surgical History History of tonsillectomy History of wisdom tooth extraction History of extraction of renal calculus History of hysterectomy Family History Father Heart attack Mother No problems noted. Social History (Reviewed 07/14/23 @ 09:35 by STANTON Vega Housing: House Alcohol intake: current Alcohol intake frequency: holidays/special occasions only Patient Tobacco Use Status: Never used Tobacco e-Cigarette/Vaping Use: Never Used Second Hand Smoke Exposure: No service: No Current occupational status: retired Current occupational exposures/hazards: No Cognitive needs: No Hearing needs: No Vision needs: Yes Questionnaire Thrive Questionnaire Date Thrive assessed: 05/09/22 ELIZABETH-7 AMB Questionnaire ELIZABETH-7 Date ELIZABETH - 7 assessed: 07/14/23 Source: Developed by Drs. Alan Styles, Kirstie Elias, Kyle Kraft and colleagues, with an educational carolina from [employer]. Physical exam (Primary Care) Vital Signs: Last Vital Signs Temp 97.0 F 10/06/23 08:53 Pulse 63 10/06/23 08:53 Resp 14 10/06/23 08:53 BP 129/63 10/06/23 08:53 Pulse Ox 96 10/06/23 08:53 Oxygen Delivery Method Room Air 10/06/23 08:53 BMI result Body Mass Index 37.4 Tobacco/Smoking Status: Tobacco use Status Tobacco use date assessed 10/06/23 10/06/23 08:51 Patient Tobacco Use Status Never used Tobacco 10/06/23 08:50 e-Cigarette/Vaping Use Never Used 10/06/23 08:50 Thrive Assessment: Date of Thrive Assessment Date Thrive assessed 05/09/22 10/06/23 08:50 Results AMB Urinalysis Dipstick UR Leukocytes Medium Last Edit by Kriss Balderas CMA on 10/06/23 09 :53 UR Nitrite Negative Last Edit by Kriss Balderas CMA on 10/06/23 09: 53 UR Urobilinogen Normal Last Edit by Kriss Balderas CMA on 10/06/23 09:53 UR Protein Trace Last Edit by Kriss Balderas CMA on 10/06/23 09:53 UR Ph 6.0 Last Edit by Kriss Balderas CMA on 10/06/23 09:53 UR Blood Small Last Edit by Kriss Balderas CMA on 10/06/23 09:53 UR Specific [place] 1.020 Last Edit by Kriss Balderas CMA on 09:53 UR Ketone Negative Last Edit by Kriss Balderas CMA on 10/06/23 09:5 3 UR Bilirubin Negative Last Edit by Kriss Balderas CMA on 10/06/23 09:53 UR Glucose Negative Last Edit by Kriss Balderas CMA on 10/06/23 09: 53 Results Reviewed Results Reviewed: Laboratory Last Values Urine pH (Clinic) 6.0 10/06/23 09:49 Specific [place] (Clinic) 1.020 10/06/23 09:49 Ur Protein (Clinic) Trace 10/06/23 09:49 Ur Ketones (Clinic) Negative 10/06/23 09:49 Urine Blood (Clinic) Small 10/06/23 09:49 Urine Nitrite Negative 10/06/23 09:49 Urine Bilirubin (Clinic) Negative 10/06/23 09:49 Urobilinogen (Clinic) Normal 10/06/23 09:49 Leukocyte Esterase (Clinic) Medium 10/06/23 09:49 Urine Glucose (Clinic) Negative 10/06/23 09:49 Assessment and Plan Assessment & Plan (1) Routine physical examination: Code(s): Z00.00 - Encounter for general adult medical examination without abnormal findings (2) Epigastric pain: Code(s): R10.13 - Epigastric pain (3) History of renal stone: Code(s): Z87.442 - Personal history of urinary calculi (4) Abnormal urinalysis: Code(s): R82.90 - Unspecified abnormal findings in urine Plan 1. Patient is seen today for a routine physical. As part of this visit we rev iewed the following issues, which are considered and essential part of preventative health in this age group: - Breast Cancer screening - UTD (Dr. 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 Repeat UA and check culture. Patient has no UTI symptoms. Request KUB and u/s reports from [facility]. If culture is negative will refer patient back to Dr. Kruger. If culture is positive will treat and repeat urinalysis to see if hematuria resolves. Orders: Orders UA w Microscopic 10/06/23 R82.90 - Unspecified abnormal findings in urine Urine Culture 10/06/23 R82.90 - Unspecified abnormal findings in urine AMB Urinalysis Dipstick 10/06/23 R10.13 - Epigastric pain, Z87.442 - Personal history of urinary calculi Medications: Changed From omeprazole 20 mg PO DAILY 30 days 30 caps 2RF To omeprazole 20 mg PO DAILY PRN 30 caps 2RF reflux 30 days Coding Level of Care Code Est Pt Prev Care >65y(09909) Diagnoses Routine physical examination Z00.00 Epigastric pain R10.13 History of renal stone Z87.442 Abnormal urinalysis R82.90
[2023-10-06 08:53] VITALS: BP 129/63; PULSE 63; RESP 14; TEMP 36.1; O2SAT 96; BMI 37.4
== END 2023-10-06 10:14 | disposition home or self-care (01) ==
PROVIDERS: PCP Family Medicine; Visit Provider Family Medicine
DX: R10.13 Epigastric pain (principal); Z87.442 Personal history of urinary calculi
CPT/HCPCS: 81002; 99397

== ENCOUNTER 2023-10-06 09:49 | Outpatient (REF) | payer MEDICARE, SELFPAY ==
[2023-10-06 12:05] LABS: Appearance Urine Cloudy; Color Urine Yellow; Glucose Urine UA Negative (Negative); Leukocyte Esterase Urine Moderate (2+) (Negative); Nitrite Urine Negative (Negative); UMIC TRIGGER UA YES; Urine Blood Trace (Negative); Urine Ketones Negative (Negative); Urine Protein Trace mg/dL (Neg-Trace)
[2023-10-06 12:09] LABS: Bacteria Urine 4+ (None Seen); Hyaline Casts Urine 0-2 /LPF (0-2); RBC Urine 0-2 /HPF (0-2); WBC Urine >50 /HPF (0-5)
== END 2023-10-06 09:50 | disposition home or self-care (01) ==
LOC: HO.LAB 09:49
PROVIDERS: Visit Provider Physician Assistant Medical
DX: R82.90 Unspecified abnormal findings in urine (principal)
CPT/HCPCS: 81001; 87086; 87088; 87186

== ENCOUNTER 2023-10-27 10:26 | Outpatient (REF) | payer MEDICARE, SELFPAY ==
[2023-10-27 14:12] LABS: Appearance Urine Cloudy; Color Urine Yellow; Glucose Urine UA Negative (Negative); Leukocyte Esterase Urine Moderate (2+) (Negative); Nitrite Urine Positive (Negative); UMIC TRIGGER UA YES; Urine Blood Negative (Negative); Urine Ketones Negative (Negative); Urine Protein Negative (Neg-Trace)
[2023-10-27 14:17] LABS: Bacteria Urine 4+ (None Seen); Hyaline Casts Urine 0-2 /LPF (0-2); RBC Urine 0-2 /HPF (0-2)
== END 2023-10-27 10:27 | disposition home or self-care (01) ==
LOC: HO.WFDLDS 10:26
PROVIDERS: Visit Provider Family Medicine
DX: N39.0 Urinary tract infection, site not specified (principal); R31.9 Hematuria, unspecified
CPT/HCPCS: 81001; 87086; 87088; 87186

== ENCOUNTER 2023-11-21 11:34 | Outpatient (REF) | payer MEDICARE, SELFPAY ==
[2023-11-21 14:50] LABS: Appearance Urine Turbid; Color Urine Yellow; Glucose Urine UA Negative (Negative); Leukocyte Esterase Urine Moderate (2+) (Negative); Nitrite Urine Negative (Negative); PH 5.5 (5.0-9.0); UMIC TRIGGER UA YES; Urine Blood Trace (Negative); Urine Ketones Negative (Negative); Urine Protein Negative (Neg-Trace)
[2023-11-21 15:12] LABS: Bacteria Urine None Seen (None Seen); Calcium Oxalate Crystals Urine Present; Hyaline Casts Urine 0-2 /LPF (0-2); RBC Urine 0-2 /HPF (0-2); WBC Urine 0-5 /HPF (0-5)
== END 2023-11-21 11:35 | disposition home or self-care (01) ==
LOC: HO.WFDLDS 11:34
PROVIDERS: Referring Provider Physician Assistant Medical; Visit Provider Family Medicine
DX: N39.0 Urinary tract infection, site not specified (principal)
CPT/HCPCS: 81001; 87086

== ENCOUNTER 2023-11-28 13:31 | Outpatient (REF) | payer MEDICARE, SELFPAY ==
[2023-11-28 17:48] LABS: Appearance Urine Cloudy; Color Urine Yellow; Glucose Urine UA Negative (Negative); Leukocyte Esterase Urine Moderate (2+) (Negative); Nitrite Urine Positive (Negative); PH 5.5 (5.0-9.0); UMIC TRIGGER UA YES; Urine Blood Trace (Negative); Urine Ketones Negative (Negative); Urine Protein Negative (Neg-Trace)
[2023-11-28 17:55] LABS: Bacteria Urine 4+ (None Seen); Hyaline Casts Urine 0-2 /LPF (0-2); RBC Urine 0-2 /HPF (0-2); WBC Urine 21-50 /HPF (0-5)
== END 2023-11-28 13:32 | disposition home or self-care (01) ==
LOC: HO.WFDLDS 13:31
PROVIDERS: Referring Provider Physician Assistant Medical; Visit Provider Family Medicine
DX: R31.9 Hematuria, unspecified (principal); R82.79 Other abnormal findings on microbiological examination of urine
CPT/HCPCS: 81001; 87086; 87088; 87186

== ENCOUNTER 2024-01-08 09:42 | Outpatient (AMB) | payer MEDICARE, SELFPAY ==
--- NOTE | 2024-01-08 10:01 | A.OFFPC_ITS ---
Vital Signs 01/08/24 10:06 Height 5 ft 1 in Weight 198 lb BMI 37.4 BP 110/60 Blood Pressure Location Lt brachial Position Sitting Respiration 12 Pulse 60 Pulse Source Pulse Oximeter Pulse Oximetry (%) 98 Oxygen Delivery Method Room Air Intake Visit Reasons: F/U labs Intake Note: pt would like to discus A1C Allergies No Known Allergies Allergy (Verified 01/08/24 10:03) Tobacco use date assessed: 10/06/23 Dental Screening Dental Screen Date: 07/14/23 HPI F/U labs HPI Details 68 y/o female presents to f/u chronic co nditions. Labs drawn 09/29/23. Triglycerides 122. TC 155. LDL 88. HDL 43. She is on simvastatin 40mg. Liver enzymes are fine. A1c today 01/08/24 5.8%. Recent bone density showed osteopenia. HPI Comments History of Present Illness Details Documentation assistance for Gumaro Palacios MD, was provided by Doyle Donis,? Training Personnel Supervisor on 01/08/2024 at 10:40 AM EST. I, Dr. Palacios, have read, observed, and verified documentation. [facility], [facility] Medical History (Updated 01/08/24 @ 10:40 by Doyle Donis) Asymptomatic bacteriuria SVT (supraventricular tachycardia) Hyperlipidemia Essential hypertension Surgical History History of tonsillectomy History of wisdom tooth extraction History of extraction of renal calculus History of hysterectomy Family History Father Heart attack Mother No problems noted. Social History Housing: House Alcohol intake: current Alcohol intake frequency: holidays/special occasions only Patient Tobacco Use Status: Never used Tobacco e-Cigarette/Vaping Use: Never Used Second Hand Smoke Exposure: No service: No Current occupational status: retired Current occupational exposures/hazards: No Cognitive needs: No Hearing needs: No Vision needs: Yes Questionnaire Thrive Questionnaire Date Thrive assessed: 05/09/22 ELIZABETH-7 AMB Questionnaire ELIZABETH-7 Date ELIZABETH - 7 assessed: 07/14/23 Source: Developed by Drs. Alan Styles, Kirstie Elias, Kyle Kraft and colleagues, with an educational carolina from [employer]. Review of Systems Const Denies chills, Denies fatigue, Denies fever(s), Denies headache(s) and Denies weakness ENT Denies dizziness and Denies headache(s) Card Denies dyspnea Resp Denies cough, Denies dyspnea, Denies wheezing and Denies other (shortness of breath) Musc Denies numbness and Denies tingling Neuro Denies dizziness, Denies headache(s), Denies numbness, Denies tingling and Denies weakness Psych Denies anxiety and Denies depression Endo Denies fatigue Aller/Immun Denies wheezing Physical exam (Primary Care) Vital Signs: Last Vital Signs Pulse 60 01/08/24 10:06 Resp 12 01/08/24 10:06 BP 110/60 01/08/24 10:06 Pulse Ox 98 01/08/24 10:06 Oxygen Delivery Method Room Air 01/08/24 10:06 BMI result Body Mass Index 37.4 Tobacco/Smoking Status: Tobacco use Status Tobacco use date assessed 10/06/23 01/08/24 10:02 Patient Tobacco Use Status Never used Tobacco 01/08/24 10:02 e-Cigarette/Vaping Use Never Used 01/08/24 10:02 Thrive Assessment: Date of Thrive Assessment Date Thrive assessed 05/09/22 01/08/24 10:02 Const General: well developed; No acute distress Nutritional Appearance: well nourished Orientation/consciousness: patient oriented x3 [facility]EN[facility] Head: Yes normocephalic and Yes atraumatic Eyes General: appearance normal, both eyes and all related structures Pupils: Equal, round and reactive pupils present EOM: EOMs intact bilaterally Resp Effort & Inspection: normal respiratory effort Auscultation: clear to auscultation bilaterally Cardio Rate: regular rate Rhythm: regular rhythm Heart sounds: S1 normal heart sound present, S2 normal heart sound present, no gallops, no murmurs and no rubs Neuro General: patient oriented x3 and gait normal Cranial nerves: Yes Equal, round and reactive pupils present Psych Affect: normal affect Coding Level of Care Code Est Pt Level 4 (47868) Diagnoses Essential hypertension I10 Pre-diabetes R73.03 Asymptomatic bacteriuria R82.71 Hyperlipidemia E78.5 Osteopenia M85.80 Assessment & Plan Assessment & Plan (1) Essential hypertension: Code(s): I10 - Essential (primary) hypertension Category: Medical Plan: Blood?pressure?is?controlled.??Goal?is?less?than?140/90 Continue?current?medication (2) Pre-diabetes: Code(s): R73.03 - Prediabetes Category: Medical Plan: A1c?5.8%. ?Pre?diabetes?range Continue?diet?low?in?sugars?and?starches.??Encouraged? exercise?and?weight?control. (3) Asymptomatic bacteriuria: Code(s): R82.71 - Bacteriuria Category: Medical Plan: History?of?renal?stones?and?followed?by?Urology. Recent?retroperitoneal?ultrasound?showed?no?stone?in?left?kidney?where?she?had?h ad?1?previously?and?likely?pass?this?last?September. Also?showed?2?tiny?calculi?in?right?kidney. She?has?an?upcoming renal-bladder?ultrasound?and?KUB. Encouraged?good?hydration (4) Hyperlipidemia: Code(s): E78.5 - Hyperlipidemia, unspecified Category: Medical Plan: She?is?on?simvastatin Lipids?are?well?controlled Continue?current?medication (5) Osteopenia: Code(s): M85.80 - Other specified disorders of bone density and structure, unspecified site Category: Medical Plan: DEXA?scan?showed?osteopenia She?is?on?vitamin-D Encouraged?good?dietary?sources?of?calcium Hydrate?well Orders: Orders AMB Hemoglobin A1c Today R73.03 - Prediabetes Medications: Changed From cholecalciferol (vitamin D3) 50 mcg PO .qod 30 days 15 caps 4RF To cholecalciferol (vitamin D3) 50 mcg PO DAILY 90 days 90 caps 4RF
[2024-01-08 10:06] VITALS: BP 110/60; PULSE 60; RESP 12; O2SAT 98; BMI 37.4
== END 2024-01-08 10:52 | disposition home or self-care (01) ==
PROVIDERS: PCP Family Medicine; Visit Provider Family Medicine
DX: I10 Essential (primary) hypertension (principal); R73.03 Prediabetes; R82.71 Bacteriuria; E78.5 Hyperlipidemia, unspecified; M85.80 Other specified disorders of bone density and structure, unspecified site

== ENCOUNTER → 2024-01-08 09:42 | Outpatient (BNVA) | payer MEDICARE, SELFPAY | PROVIDERS: PCP Family Medicine; Visit Provider Family Medicine | DX: I10 Essential (primary) hypertension (principal); R73.03 Prediabetes; R82.71 Bacteriuria; E78.5 Hyperlipidemia, unspecified; M85.80 Other specified disorders of bone density and structure, unspecified site | CPT/HCPCS: 83036; 99212 ==

== ENCOUNTER 2024-05-13 08:29 | Outpatient (AMB) | payer MEDICARE, SELFPAY ==
--- NOTE | 2024-05-13 08:31 | A.OFFPC_ITS ---
Vital Signs 05/13/24 08:42 Height 5 ft 1 in Weight 200 lb BMI 37.8 BP 124/64 Blood Pressure Location Lt brachial Position Sitting Respiration 14 Pulse 64 Pulse Source Pulse Oximeter Temp 98.0 F Temp Source Oral Pulse Oximetry (%) 97 Oxygen Delivery Method Room Air Intake Visit Reasons: f/u hypertension, pre-diabetes Intake Note: f/u htn and pre-diabetes Allergies No Known Allergies Allergy (Verified 05/13/24 08:38) Tobacco use date assessed: 10/06/23 Dental Screening Dental Screen Date: 07/14/23 HPI f/u hypertension, pre-diabetes HPI Details 68 y/o female presents to f/u hypertensi on, pre-diabetes. Last A1c 01/08/24 5.8%. A1c today 05/13/24 5.6%. Blood pressure today 124/64, 64p. She is on lisinopril 5mg, metoprolol 100mg daily. [facility] Medical History (Updated 01/08/24 @ 10:40 by Doyle Donis) Asymptomatic bacteriuria SVT (supraventricular tachycardia) Hyperlipidemia Essential hypertension Surgical History History of tonsillectomy History of wisdom tooth extraction History of extraction of renal calculus History of hysterectomy Family History Father Heart attack Mother No problems noted. Social History Housing: House Alcohol intake: current Alcohol intake frequency: holidays/special occasions only Patient Tobacco Use Status: Never used Tobacco e-Cigarette/Vaping Use: Never Used Second Hand Smoke Exposure: No service: No Current occupational status: retired Current occupational exposures/hazards: No Cognitive needs: No Hearing needs: No Vision needs: Yes Questionnaire Thrive Questionnaire Date Thrive assessed: 05/11/24 I am a: Patient What is your living situation today?: I have a steady place to live Within the past 12 months, did the food you bought not last and you didn't have the money to get more?: Never true Within the past 12 months, did you worry whether your food would run out before you got money to buy more?: Never true Do you have trouble paying for medicines?: No Do you have trouble getting transportation to medical appointments?: No Do you have trouble paying your heating and electricity bill?: No Do you have trouble taking care of your child, family member or friend?: No Do you have trouble with day-to-day activities such as bathing, preparing meals, shopping, managing finances, etc.?: No Are you currently unemployed and looking for a job?: No Are you interested in more education?: No Please select the resources that you would like help with: None Currently or been in a relationship where the following occur: No concerns reported THRIVE Score: 0 AUDIT C Alcohol Use Questionnaire (AUDIT-C) 1. How often do you have a drink containing alcohol?: Monthly or less 2. How many drinks containing alcohol do you have on a typical day when you are drinking?: 1 or 2 3. How often do you have six or more drinks on one occasion?: Never Total Score: 1 ELIZABETH-7 AMB Questionnaire ELIZABETH-7 Date ELIZABETH - 7 assessed: 07/14/23 Source: Developed by Drs. Alan Styles, Kirstie Elias, Kyle Kraft and colleagues, with an educational carolina from [employer]. Review of Systems Const Denies chills, Denies fatigue, Denies fever(s), Denies headache(s) and Denies weakness ENT Denies dizziness and Denies headache(s) Card Denies dyspnea Resp Denies cough, Denies dyspnea, Denies wheezing and Denies other (shortness of breath) Musc Denies numbness and Denies tingling Neuro Denies dizziness, Denies headache(s), Denies numbness, Denies tingling and D enies weakness Psych Denies anxiety and Denies depression Endo Denies fatigue Aller/Immun Denies wheezing Physical exam (Primary Care) Vital Signs: Last Vital Signs Temp 98.0 F 05/13/24 08:42 Pulse 64 05/13/24 08:42 Resp 14 05/13/24 08:42 BP 124/64 05/13/24 08:42 Pulse Ox 97 05/13/24 08:42 Oxygen Delivery Method Room Air 05/13/24 08:42 BMI result Body Mass Index 37.8 Tobacco/Smoking Status: Tobacco use Status Tobacco use date assessed 10/06/23 05/13/24 08:32 Patient Tobacco Use Status Never used Tobacco 05/13/24 08:32 e-Cigarette/Vaping Use Never Used 05/13/24 08:32 Thrive Assessment: Date of Thrive Assessment Date Thrive assessed 05/11/24 05/13/24 08:32 Currently or been in a relationship where the following occur: No concerns reported Const General: well developed; No acute distress Nutritional Appearance: well nourished Orientation/consciousness: patient oriented x3 HENMT Head: Yes normocephalic and Yes atraumatic Eyes General: appearance normal, both eyes and all related structures Pupils: Equal, round and reactive pupils present EOM: EOMs intact bilaterally Resp Effort & Inspection: normal respiratory effort Auscultation: clear to auscultation bilaterally Cardio Rate: regular rate Rhythm: regular rhythm Heart sounds: S1 normal heart sound present, S2 normal heart sound present, no gallops, no murmurs and no rubs Neuro General: patient oriented x3 and gait normal Cranial nerves: Yes Equal, round and reactive pupils present Psych Affect: normal affect Coding Level of Care Code Est Pt Level 3 (70593) Diagnoses Essential hypertension I10 Pre-diabetes R73.03 Assessment & Plan Assessment & Plan (1) Essential hypertension: Code(s): I10 - Essential (primary) hypertension Category: Medical Plan: Blood?pressure?is?well?controlled.??Goal?is?less?than?140/90 Continue?current?medications (2) Pre-diabetes: Code(s): R73.03 - Prediabetes Category: Medical Plan: A1c?has?improved?from?5.8%?to?5.6%. Encouraged?ongoing?diet?low?in?sugars?and?starches,?exercise?and?weight?control Will?continue?to?monitor?periodically Orders: Orders Thyroid Stimulating Hormone Today E03.9 - Hypothyroidism, unspecified Comprehensive Met. Panel Today I10 - Essential (primary) hypertension Free T4 (Free Thyroxine) Today E03.9 - Hypothyroidism, unspecified Triiodothyronine T3 Total Today E03.9 - Hypothyroidism, unspecified Microalbumin, Random (w Creat) Today I10 - Essential (primary) hypertension
[2024-05-13 08:42] VITALS: BP 124/64; PULSE 64; RESP 14; TEMP 36.7; O2SAT 97; BMI 37.8
== END 2024-05-13 09:06 | disposition home or self-care (01) ==
PROVIDERS: PCP Family Medicine; Visit Provider Family Medicine
DX: I10 Essential (primary) hypertension (principal); R73.03 Prediabetes

== ENCOUNTER 2024-05-13 09:20 | Outpatient (REF) | payer MEDICARE, SELFPAY ==
[2024-05-13 11:20] LABS: Alanine Aminotransferase 17 U/L (0-31); Albumin Level 4.1 g/dL (3.5-5.0); Alkaline Phosphatase 66 U/L (39-117); Anion Gap 12 (12-20); Aspartate Amino Transferase 26 U/L (5-31); Bilirubin Total 0.6 mg/dL (0.0-1.0); Blood Urea Nitrogen 24 mg/dL (9-16); Calcium 9.3 mg/dL (8.4-10.2); Carbon Dioxide 25 mmol/L (22-29); Chloride 108 mmol/L (96-108); Estimated Glomerular Filt Rate > 60; Glucose Random 98 mg/dL (60-115); Potassium 4.2 mmol/L (3.3-5.1); Sodium 141 mmol/L (135-145); Total Protein 7.1 g/dL (6.5-8.0)
[2024-05-13 11:29] LABS: Microalbum/Creatinine Ratio Ur 13.7 ug/mg cr (<30)
[2024-05-13 11:38] LABS: Free T4 (Free Thyroxine) 1.13 ng/dL (0.71-1.85); Thyroid Stimulating Hormone 1.62 uIU/mL (0.32-4.0)
[2024-05-14 07:44] LABS: Triiodothyronine T3 Total 100 ng/dL (76-181)
== END 2024-05-13 09:21 | disposition home or self-care (01) ==
LOC: HO.WFDLDS 09:20
PROVIDERS: Visit Provider Family Medicine
DX: I10 Essential (primary) hypertension (principal); R73.03 Prediabetes; E03.9 Hypothyroidism, unspecified
CPT/HCPCS: 36415; 80053; 82043; 82570; 83036; 84439; 84443; 84480; 99212

== ENCOUNTER 2024-08-27 10:35 | Outpatient (AMB) | payer MEDICARE, SELFPAY ==
--- NOTE | 2024-08-27 10:50 | A.OFFPC_ITS ---
Vital Signs 08/27/24 10:59 Height 5 ft 1 in Weight 201 lb BMI 38.0 BP 122/64 Blood Pressure Location Lt brachial Position Sitting Respiration 16 Pulse 61 Pulse Source Pulse Oximeter Temp 97.6 F Temp Source Oral Pulse Oximetry (%) 100 Oxygen Delivery Method Room Air Intake Visit Reasons: f/u htn, prediabetes Intake Note: patient is scheduled for follow-up for HTN and pre-diabetes, patient has been issue with right from the knee up she has pressure as going up stairs and will explain more detailes. Allergies No Known Allergies Allergy (Verified 08/27/24 10:56) Medication List - Last Reconciled 08/27/24 by Gumaro Palacios MD aspirin 81 mg PO DAILY cholecalciferol (vitamin D3) 50 mcg PO DAILY 90 days levothyroxine 50 mcg PO DAILY 90 days lisinopril 5 mg PO DAILY 90 days metoprolol succinate ER 100 mg PO DAILY 90 days omeprazole 20 mg PO DAILY PRN 30 days simvastatin 40 mg PO BEDTIME 90 days Tobacco use date assessed: 08/27/24 Fall risk assessment: No Falls in past year Dental Screening Dental Screen Date: 08/27/24 Did you have a dental visit in the last 12 months?: Yes Did you have a dental problem in the last 6 months where you did not have access to dental care?: No Was dental information given to patient?: No HPI f/u htn, prediabetes HPI Details 69 y/o female presents to f/u HTN, pre-d jose. Blood pressure today 122/64, 61p. She is on metoprolol 100mg, lisinopril 5mg daily. Last A1c 05/13/24 5.6%. A1c today 08/27/24 is 6.0%. Has complaints of R knee pain. Recent thyroid levels are fine. Had been following up with urology for hx of UTIs, nephrolithiasis. They plant o f/u in about a year with renal bladder ultrasound and [facility] Medical History (Updated 08/27/24 @ 11:23 by Doyle Donis) Asymptomatic bacteriuria SVT (supraventricular tachycardia) Hyperlipidemia Essential hypertension Surgical History History of tonsillectomy History of wisdom tooth extraction History of extraction of renal calculus History of hysterectomy Family History Father Heart attack Mother No problems noted. Social History Housing: House Alcohol intake: current Alcohol intake frequency: holidays/special occasions only Patient Tobacco Use Status: Never used Tobacco e-Cigarette/Vaping Use: Never Used Second Hand Smoke Exposure: No service: No Current occupational status: retired Current occupational exposures/hazards: No Cognitive needs: No Hearing needs: No Vision needs: Yes Questionnaire PHQ-9 Over the last 2 weeks, how often have you been bothered by any of the following problems? 1. Little interest or pleasure in doing things: not at all 2. Feeling down, depressed, or hopeless: not at all 3. Trouble falling or staying asleep, or sleeping too much: not at all 4. Feeling tired or having little energy: not at all 5. Poor appetite or overeating: not at all 6. Feeling bad about yourself - or that you are a failure or have let yourself or your family down: not at all 7. Trouble concentrating on things, such as reading the newspaper or watching television: not at all 8. Moving or speaking so slowly that other people could have noticed. Or the opposite - being so fidgety or restless that you have been moving around a lot more than usual: not at all 9. Thoughts that you would be better off or of hurting yourself in some way: not at all Total score: 0 Depression Screening Interpretation: Negative Depression Screening Done: Yes Source: Developed by Drs. Alan Styles, Kirstie Elias, Kyle Kraft and colleagues, with an educational carolina from [employer]. Thrive Questionnaire Date Thrive assessed: 08/27/24 I am a: Patient What is your living situation today?: I have a steady place to live Within the past 12 months, did the food you bought not last and you didn't have the money to get more?: Never true Within the past 12 months, did you worry whether your food would run out before you got money to buy more?: Never true Do you have trouble paying for medicines?: No Do you have trouble getting transportation to medical appointments?: No Do you have trouble paying your heating and electricity bill?: No Do you have trouble taking care of your child, family member or friend?: No Do you have trouble with day-to-day activities such as bathing, preparing meals, shopping, managing finances, etc.?: No Are you currently unemployed and looking for a job?: No Are you interested in more education?: No Please select the resources that you would like help with: None Currently or been in a relationship where the following occur: No concerns reported THRIVE Score: 0 ELIZABETH-7 AMB Questionnaire ELIZABETH-7 Date ELIZABETH - 7 assessed: 08/27/24 Feeling nervous, anxious, or on edge: 0 = Not at all Not being able to stop or control worryin = Not at all Worrying too much about different things: 0 = Not at all Trouble relaxin = Not at all Being so restless that it is hard to sit still: 0 = Not at all Becoming easily annoyed or irritable: 0 = Not at all Feeling afraid as if something awful might happen: 0 = Not at all Total ELIZABETH-7 score (0-4 normal; 5-9 mild; 10-14 moderate; 15-21 severe): 0 Source: Developed by Drs. Alan Styles, Kirstie Elias, Kyle Kraft and colleagues, with an educational carolina from [employer]. ELIZABETH-7 Assessment Billing ELIZABETH-7 Assessment Tool: ELIZABETH-7 Assessment 95127 Review of Systems Const Denies chills, Denies fatigue, Denies fever(s), Denies headache(s) and Denies weakness ENT Denies dizziness and Denies headache(s) Card Denies dyspnea Resp Denies cough, Denies dyspnea, Denies wheezing and Denies other (shortness of breath) Musc Denies numbness and Denies tingling Neuro Denies dizziness, Denies headache(s), Denies numbness, Denies tingling and Denies weakness Psych Denies anxiety and Denies depression Endo Denies fatigue Aller/Immun Denies wheezing Physical exam (Primary Care) Vital Signs: Last Vital Signs Temp 97.6 F 08/27/24 10:59 Pulse 61 08/27/24 10:59 Resp 16 08/27/24 10:59 BP 122/64 08/27/24 10:59 Pulse Ox 100 08/27/24 10:59 Oxygen Delivery Method Room Air 08/27/24 10:59 BMI result Body Mass Index 38.0 Tobacco/Smoking Status: Tobacco use Status Tobacco use date assessed 08/27/24 08/27/24 11:05 Patient Tobacco Use Status Never used Tobacco 08/27/24 10:51 e-Cigarette/Vaping Use Never Used 08/27/24 10:51 PHQ-9: PHQ-9 Score PHQ-9: Total score 0 08/27/24 11:05 Depression Screening Interpretation: Negative Thrive Assessment: Date of Thrive Assessment Date Thrive assessed 08/27/24 08/27/24 11:05 Currently or been in a relationship where the following occur: No concerns reported Const General: well developed; No acute distress Nutritional Appearance: well nourished and obese Orientation/consciousness: patient oriented x3 HENMT Head: Yes normocephalic and Yes atraumatic Eyes General: appearance normal, both eyes and all related structures Pupils: Equal, round and reactive pupils present EOM: EOMs intact bilaterally Resp Effort & Inspection: normal respiratory effort Neuro General: patient oriented x3 and gait normal Cranial nerves: Yes Equal, round and reactive pupils present Psych Affect: normal affect Coding Level of Care Code Est Pt Level 4 (38932) Diagnoses Essential hypertension I10 Pre-diabetes R73.03 Hypothyroidism E03.9 Right knee pain M25.561 Additional Codes ELIZABETH-7 Assessment Billing - ELIZABETH-7 Assessment Tool: ELIZABETH-7 Assessment [id number] ([id number]) Assessment & Plan Assessment & Plan (1) Essential hypertension: Code(s): I10 - Essential (primary) hypertension Category: Medical Plan: Blood?pressure?is?well?controlled.??Goal?is?less?than?140/90 Continue?current?medication?regimen (2) Pre-diabetes: Code(s): R73.03 - Prediabetes Category: Medical Plan: A1c?has?climbed Encouraged?diet?lower?in?sugars?and?starches Encouraged?weight?loss?and?exercise?as?tolerated (3) Hypothyroidism: Code(s): E03.9 - Hypothyroidism, unspecified Category: Medical Plan: Thyroid?hormone?levels?are?all?within?range Continue?levothyroxine?as?prescribed (4) Right knee pain: Code(s): M25.561 - Pain in right knee Category: Medical Plan: Right?knee?pain Will?check?x-ray?and?follow-up?with?patient?to?discuss?next?steps Orders: Orders XR knee RT 3V Today M25.561 - Pain in right knee
[2024-08-27 10:59] VITALS: BP 122/64; PULSE 61; RESP 16; TEMP 36.4; O2SAT 100; BMI 38.0
--- OUTSIDE RECORDS SUMMARY | 2024-08-27 12:13 | XMS_ITS | Continuity of Care Document ---
Author Organization [facility] [address] [place] [address] Phone [phone] Care Team Providers Care Annealer Helper Name Role Phone Gumaro Palacios MD Care Team Information Electrician Technician [phone] Problems Active Problems Provider Date Hypercholesterolemia John Prescott M.D. Ons et: 11/08/2021 Essential hypertension John Prescott M.D. O nset: 11/08/2021 Social History Type Date Description Comments Sex Unknown Lives With Daughter ETOH Use Occasionally consumes alcoho l Tobacco Use Start: Unknown Patient has never smoked Allergies and adverse reactions Description No Known Drug Allergies Medications Active Medications SIG Qnty Indications Order ing Provider Date [id number] Tablets 1 by mouth every day 90tabs John Prescott M.D. 07/11/2022 Levothyroxine [id number] Tablets Take 1 Tablet By Mouth Every Day Unknown Metoprolol Succinate [id number] Tablets ER 24HR Take 1 Tablet By Mouth Every Day Gumaro Palacios MD Binaxnow Covid-19 Ag Card Home TestKit Test as Directed Today Unknown [id number] Tablets 1 by mouth every day 90tabs Unknown [facility] A312dgt (1999 Ut) Capsules take 1 tablet by mouth every other for 30 days. John Prescott M.D. Vital Signs Date Vital Result Comment 07/11/2022 8:18am BP Systolic 140 mmHg BP Diastolic 90 mmHg Heart Rate 72 /min Height 61.5 inches 5'1.50 Weight 197.00 lb BMI (Body Mass Index) 36.6 kg/m2 Medical Devices Description No Information Available Encounters Type Date Location Provider Dx Diagnosis Office Visit 07/11/2022 8:15a Main Office John Prescott M.D. E21.3 Hyperparathyroidism, unspecified Assessments Date Code Description Provider 07/11/2022 E21.3 Hyperparathyroidism John Dunn M.D. Plan of Treatment 07/11/2022 - John Prescott M.D.* E21.3 Hyperparathyroidism * Functional Status Description No Information Available Mental Status Description No Information Available Referrals Refer to Reason for Referral Status Appt Adama e John Prescott M.D. Created [address] [place] [address] Drive [address] [place] [address] [phone] John Prescott M.D. HYPERCHLORESTERIMIA Created [address] [place] [address] Drive [address] [place] [address] [phone]
== END 2024-08-27 11:35 | disposition home or self-care (01) ==
LOC: HO.HMCFM 10:36
PROVIDERS: PCP Family Medicine; Visit Provider Family Medicine
DX: I10 Essential (primary) hypertension (principal); R73.03 Prediabetes; E03.9 Hypothyroidism, unspecified; M25.561 Pain in right knee

== ENCOUNTER → 2024-08-27 10:35 | Outpatient (BNVA) | payer MEDICARE, SELFPAY | PROVIDERS: PCP Family Medicine; Visit Provider Family Medicine | DX: I10 Essential (primary) hypertension (principal); R73.03 Prediabetes; M25.561 Pain in right knee; E03.9 Hypothyroidism, unspecified | CPT/HCPCS: 96127; 99212 ==

== ENCOUNTER 2024-11-04 08:21 | Outpatient (REF) | payer MEDICARE, SELFPAY ==
--- NOTE | ~2024-11-04 | XR_ITS ---
EXAMINATION: XR KNEE 3 VIEWS RIGHT HISTORY: M25.561 - Pain in right knee COMPARISON: There are no prior studies available for comparison. FINDINGS: Three views of the right knee are submitted. Osseous mineralization is normal. There is no fracture or dislocation. The joint spaces are preserved. The soft tissues are unremarkable. There is no joint effusion. XR/XR knee RT 3V IMPRESSION: Unremarkable examination of the right knee. Electronically signed by: Alan Grimaldo MD 11/04/2024 09:33 AM EDT
== END 2024-11-04 08:22 | disposition home or self-care (01) ==
LOC: HO.XRAY 08:21
PROVIDERS: Absent Provider Family Medicine; PCP Family Medicine; Visit Provider Nurse Practitioner Family
DX: I25.10 Atherosclerotic heart disease of native coronary artery without angina pectoris (principal); I47.10 Supraventricular tachycardia, unspecified; I10 Essential (primary) hypertension; E78.5 Hyperlipidemia, unspecified; M25.561 Pain in right knee; R00.2 Palpitations; R07.89 Other chest pain; G89.29 Other chronic pain; Z82.49 Family history of ischemic heart disease and other diseases of the circulatory system; Z79.82 Long term (current) use of aspirin; Z79.899 Other long term (current) drug therapy
CPT/HCPCS: 73562; 93005; 99212

== ENCOUNTER 2024-11-04 08:21 | Outpatient (AMB) | payer MEDICARE, SELFPAY ==
[2024-11-04 08:24] VITALS: BP 134/72; PULSE 57; BMI 36.8
--- NOTE | 2024-11-04 08:24 | MHC.OFFVIS ---
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: No Allergies No Known Allergies Allergy (Verified 11/04/24 08:27) Medication List - Last Reconciled 11/04/24 by Ana Nagy NP-C aspirin 81 mg PO DAILY cholecalciferol (vitamin D3) 50 mcg PO DAILY 90 days levothyroxine 50 mcg PO DAILY 90 days lisinopril 5 mg PO DAILY 90 days metoprolol succinate ER 100 mg PO DAILY 90 days omeprazole 20 mg PO DAILY PRN 30 days simvastatin 40 mg PO BEDTIME 90 days HPI HPI 2 yrs f/u w/ekg dx: coronary artery calcification: Details: Radha is a 69-year-old female past medical history of hypertension, hyperlipidemia, obesity, brief atrial tachycardia, minimal coronary artery disease who presents for follow-up. Her last prior visit to our office was 10/03/2022. Today she reports that she has been doing generally well over the last 2 years. She continues to report intermittent heart palpitations which occur randomly. Episodes are brief lasting sec and resolving. It can happen daily then not for several days. She has a chronic left chest tightness that occurs randomly and intermittently over the last several years without worsening. She will get short of breath with the exertion such as climbing stairs. She blames this on her weight. No PND, orthopnea or edema. No lightheadedness, presyncope, syncope. Compliant with medications. Does drink ice tea/caffeinated beverages at times. COUNTS INCLUDE 234 BEDS AT THE [facility] Medical History Asymptomatic bacteriuria SVT (supraventricular tachycardia) Hyperlipidemia Essential hypertension Surgical History History of tonsillectomy History of wisdom tooth extraction History of extraction of renal calculus History of hysterectomy Family History Father Heart attack Mother No problems noted. Social History Housing: House Alcohol intake: current Alcohol intake frequency: holidays/special occasions only Patient Tobacco Use Status: Never used Tobacco e-Cigarette/Vaping Use: Never Used Second Hand Smoke Exposure: No service: No Current occupational status: retired Current occupational exposures/hazards: No Cognitive needs: No Hearing needs: No Vision needs: Yes Review of Systems Const All systems reviewed & are unremarkable except as noted in HPI and below ENT Denies dizziness Card Details: random tightness left chest - occurring many years Breif rapid heart palpitations Denies chest pain, Denies chest pain at rest, Denies chest pain with activity, Denies rapid heart rate, Denies pedal edema, Denies edema, Denies leg edema, Denies lightheadedness, Denies palpitations, Denies dyspnea, Denies dyspnea on exertion and Denies orthopnea Resp Denies cough, Denies dyspnea and Denies dyspnea on exertion GI Denies hematochezia and Denies change in stool character Musc Denies abnormal gait, Reports limited range of motion, Reports muscle cramps, Denies muscle weakness, Denies numbness, Denies radiating pain into limb, Denies stiffness and Denies tingling Neuro Denies abnormal gait, Denies dizziness, Denies numbness and Denies tingling Endo Denies palpitations Physical Exam Vital Signs: Last Vital Signs Pulse 57 11/04/24 08:24 BP 134/72 11/04/24 08:24 BMI result Body Mass Index 36.8 Const General: cooperative, healthy appearing, comfortable and no acute distress Orientation/consciousness: patient oriented x3 Neck Neck: Yes normal visual inspection Resp Effort & Inspection: normal respiratory effort Auscultation: clear to auscultation bilaterally, no rales, no rhonchi and no wheezes Cardio Rate: regular rate Rhythm: regular rhythm Heart sounds: S1 normal heart sound present, S2 normal heart sound present, no gallops, no murmurs and no rubs Neuro General: patient oriented x3 Extrem General: Yes normal to inspection, No no pedal edema and No calf tenderness Psych Appearance: grossly normal Mental Status: mental status grossly normal Speech and movement: Normal speech and movement present Office Procedures EKG Details: Today, read by me, sinus bradycardia, cant exclude anterior infart, rate 57, Qtc 410ms. ( likely related to lead placement/ body habitus) 52243-[id number], Complete Assessment & Plan Assessment & Plan (1) CAD (coronary artery disease): Code(s): I25.10 - Atherosclerotic heart disease of [place] coronary artery without angina pectoris Category: Medical Plan: History of mild nonobstructive coronary artery disease. Echocardiogram 02/15/2022 showed EF 58%, no regional wall motion abnormalities and no valve abnormalities. A CTA of the coronary arteries done 07/29/2022 shows focal calcification of the left main, less than 25% stenosis, normal LAD, left circumflex and RCA. Currently no angina. Continue aspirin indefinitely. Continue simvastatin with ideal LDL goal less than 70. Continue metoprolol. Signs and symptoms of angina reviewed with her. Cardiology follow-up 2 years, sooner if needed. (2) Essential hypertension: Code(s): I10 - Essential (primary) hypertension Category: Medical Plan: Blood pressure goal less than 130/80, adequately controlled at this time. Continue lisinopril and metoprolol. Benefits a weight loss and increasing physical activity reviewed. (3) Hyperlipidemia: Code(s): E78.5 - Hyperlipidemia, unspecified Category: Medical Plan: [place] LDL goal less than 70. Labs done 09/29/2023 showed LDL 88. Update fasting lipid profile, patient informed. Continue simvastatin 40 mg daily. (4) SVT (supraventricular tachycardia): Code(s): I47.1 - Supraventricular tachycardia Category: Medical Plan: Brief episodes of atrial tach/SVT noted on prior Holter. She continues to report brief heart palpitations lasting sec. no increase overall in the last 2 years. Currently satisfied with how she is feeling. Continue metoprolol. Benefit of caffeine reduction reviewed. (5) Family history of premature CAD: Code(s): Z82.49 - Family history of ischemic heart disease and other diseases of the circulatory system Category: Medical Plan I discussed with the patient the nature of atrial tachycardia and its management, including the current medication regimen and potential dosage adjustments if symptoms persist. We reviewed her coronary artery disease status, emphasizing the importance of cholesterol management and the potential benefits of switching to a stronger statin if necessary. I advised her on lifestyle modifications, particularly reducing caffeine intake, to help manage palpitations. The patient was instructed to monitor for any new or worsening symptoms and to seek further evaluation if needed. Orders: Orders Lipid Panel Today E78.5 - Hyperlipidemia, unspecified Patient Instructions: - Continue current medication for atrial tachycardia. - Monitor cholesterol levels regularly. - Consider stronger statin if LDL remains above target. - Reduce caffeine intake to manage palpitations. - Report any new or worsening symptoms to healthcare provider. Patient was informed and verbally consented to the use of an ambient scribe for clinic note documentation during this visit. Visit time spent on chart review, interview, assessment, orders, documentation. Coding Level of Care Code Est Pt Level 4 (57407) Complex EM visit Add On G2211 Diagnoses CAD (coronary artery disease) I25.10 Essential hypertension I10 Hyperlipidemia E78.5 SVT (supraventricular tachycardia) I47.1 Family history of premature CAD Z82.49 CPT Codes EKG - CPT: 55218-Rqzypwegdfxrpsxrb, Complete ([id number]) Time Spent (min) 30
--- OUTSIDE RECORDS SUMMARY | 2024-11-04 08:39 | XMS_ITS | Continuity of Care Document ---
Author Organization [facility] [address] [facility] [address] [place] [address] Phone [phone] Care Team Providers Care Brazing Machine Operator Name Role Phone Gumaro Palacios MD Care Team Information Employee Health Nurse [phone] Problems Active Problems Provider Date Hypercholesterolemia John Prescott M.D. Ons et: 11/08/2021 Essential hypertension John Prescott M.D. O nset: 11/08/2021 Social History Type Date Description Comments Sex Female Sex Unknown Lives With Daughter ETOH Use Occasionally consumes alcoho l Tobacco Use Start: Unknown Patient has never smoked Allergies and adverse reactions Description No Known Drug Allergies Medications Active Medications SIG Qnty Indications Order ing Provider Date Gryfkmjvknl58ck Tablets 1 by mouth every day 90tabs John Prescott M.D. 07/11/2022 Levothyroxine Sfyapy13eqy Tablets Take 1 Tablet By Mouth Every Day Unknown Metoprolol Succinate FV580rt Tablets ER 24HR Take 1 Tablet By Mouth Every Day Gumaro Palacios MD Binaxnow Covid-19 Ag Card Home TestKit Test as Directed Today Unknown Tnuucuhfdl0ws Tablets 1 by mouth every day 90tabs Unknown [facility] A825rlt (1999 Ut) Capsules take 1 tablet by [...] Appt Adama e John Prescott M.D. Created [address] [place] [address] Drive [address] [place] [address] [phone] John Prescott M.D. HYPERCHLORESTERIMIA Created [address] [place] [address] Drive [address] [place] [address] [phone]
== END 2024-11-04 08:58 | disposition home or self-care (01) ==
LOC: HO.HCS 08:22
PROVIDERS: PCP Family Medicine; Visit Provider Nurse Practitioner Family
DX: I25.10 Atherosclerotic heart disease of native coronary artery without angina pectoris (principal); I10 Essential (primary) hypertension; E78.5 Hyperlipidemia, unspecified; I47.10 Supraventricular tachycardia, unspecified; Z82.49 Family history of ischemic heart disease and other diseases of the circulatory system
CPT/HCPCS: 93010; 99214; G2211

== ENCOUNTER → 2024-11-04 09:07 | Outpatient (BNV) | payer MEDICARE, SELFPAY | PROVIDERS: Absent Provider Family Medicine; PCP Family Medicine; Visit Provider Radiology Diagnostic Radiology | DX: M25.561 Pain in right knee (principal) | CPT/HCPCS: 73562 ==

== ENCOUNTER 2024-11-19 11:58 | Outpatient (REF) | payer MEDICARE, SELFPAY ==
--- OUTSIDE RECORDS SUMMARY | 2024-11-19 12:51 | XMS_ITS | Continuity of Care Document ---
Author Organization [facility] [address] [facility] [address] [place] [address] Phone [phone] Care Team Providers Care Search Optimization Analyst Name Role Phone Gumaro Palacios MD Care Team Information Commercial Front Load Driver [phone] Problems Active Problems Provider Date Hypercholesterolemia John [...] SIG Qnty Indications Order ing Provider Date Vwlvacornze75ng Tablets 1 by mouth every day 90tabs John Prescott M.D. 07/11/2022 Levothyroxine Kfsqyk31koo Tablets Take 1 Tablet By Mouth Every Day Unknown Metoprolol Succinate CY849op Tablets ER 24HR Take 1 Tablet By Mouth Every Day Gumaro Palacios MD Binaxnow Covid-19 Ag Card Home TestKit Test as Directed Today Unknown Mbeeemazxh1mj Tablets 1 by mouth every day 90tabs Unknown [facility] D693kjh (1999 Ut) Capsules take 1 tablet by [...] Appt Adama e John Prescott M.D. Created [address] [place] [address] Drive [address] [place] [address] [phone] John Prescott M.D. HYPERCHLORESTERIMIA Created [address] [place] [address] Drive [address] [place] [address] [phone]
[2024-11-19 14:58] LABS: Cholesterol 147 mg/dL (<200); HDL Cholesterol 41 mg/dL (>40); Triglycerides 120 mg/dL (<150)
== END 2024-11-19 11:59 | disposition home or self-care (01) ==
LOC: HO.WFDLDS 11:58
PROVIDERS: Visit Provider Nurse Practitioner Family
DX: E78.5 Hyperlipidemia, unspecified (principal)
CPT/HCPCS: 36415; 80061

== ENCOUNTER → 2024-12-20 15:38 | Outpatient (AMB) | payer MEDICARE, SELFPAY ==
--- NOTE | 2024-12-20 15:35 | A.OFFPC_ITS ---
Intake Visit Reasons: f/u R knee pain, x-ray via telemedicine Intake Note: Telehealth to review xray results. Consumer Product Advisor Required: No Allergies No Known Allergies Allergy (Verified 12/20/24 15:36) Medication List - Last Reconciled 12/20/24 by Gumaro Palacios MD aspirin 81 mg PO DAILY atorvastatin (Lipitor) 40 mg PO BEDTIME cholecalciferol (vitamin D3) 50 mcg PO DAILY 90 days levothyroxine 50 mcg PO DAILY 90 days lisinopril 5 mg PO DAILY 90 days metoprolol succinate ER 100 mg PO DAILY 90 days omeprazole 20 mg PO DAILY PRN 30 days Tobacco use date assessed: 08/27/24 Fall risk assessment: No Falls in past year Last assessed Fall Risk: 12/20/24 Dental Screening Dental Screen Date: 08/27/24 HPI f/u R knee pain, x-ray via telemedicine HPI Details 69 y/o female presents to f/u R knee jazmyn n. Recent knee x-ray unremarkable. She describes R leg pain while climbing the stairs or if she sits for too long. She is unsure if it is her upper thigh or her R knee. Has not done any physical therapy yet for her R leg. Had been following up with Cardiology for CAD, SVT. They had switched simvastatin to artovastatin. HPI Comments History of Present Illness Details Documentation assistance for Gumaro Palacios MD, was provided by Doyle Donis,? Geothermal Operating Engineer on 12/20/2024 at 3:50 PM EST. I, Dr. Palacios, have read, observed, and verified documentation. ? PFSH Medical History Asymptomatic bacteriuria SVT (supraventricular tachycardia) Hyperlipidemia Essential hypertension Surgical History History of tonsillectomy History of wisdom tooth extraction History of extraction of renal calculus History of hysterectomy Family History Father Heart attack Mother No problems noted. Social History Housing: House Alcohol intake: current Alcohol intake frequency: holidays/special occasions only Patient Tobacco Use Status: Never used Tobacco e-Cigarette/Vaping Use: Never Used Second Hand Smoke Exposure: No service: No Current occupational status: retired Current occupational exposures/hazards: No Cognitive needs: No Hearing needs: No Vision needs: Yes Questionnaire Thrive Questionnaire Date Thrive assessed: 05/11/24 ELIZABETH-7 AMB Questionnaire ELIZABETH-7 Date ELIZABETH - 7 assessed: 08/27/24 Source: Developed by Drs. Alan Styles, Kirstie Elias, Kyle Kraft and colleagues, with an educational [place] from [employer]. Physical exam (Primary Care) Tobacco/Smoking Status: Tobacco use Status Tobacco use date assessed 08/27/24 12/20/24 15:38 Patient Tobacco Use Status Never used Tobacco 12/20/24 15:38 e-Cigarette/Vaping Use Never Used 12/20/24 15:38 Thrive Assessment: Date of Thrive Assessment Date Thrive assessed 05/11/24 12/20/24 15:38 Telehealth Telehealth Telehealth Platform: Telephone Location of provider rendering services: practice address Location of patient: address on file Patient Identification confirmed using: Name, : Yes Telehealth method: voice only Patient verbally consented to treatment: Yes Patient verbally consented to billing insurance company: Yes Patient informed of any privacy concerns related to visit: Yes Minutes spent on Phone/Video with Pt.: 13 Coding Level of Care Code Tele Est Pt Level 2 (81273) Diagnoses Right knee pain M25.561 CAD (coronary artery disease) I25.10 SVT (supraventricular tachycardia) I47.1 Hyperlipidemia E78.5 Assessment & Plan Assessment & Plan (1) Right knee pain: Code(s): M25.561 - Pain in right knee Category: Medical Plan: X-ray was negative Ongoing right knee and distal anterior thigh pain Probable patellofemoral syndrome and I offered physical therapy but patient declines this. Advised ice/heat, Tylenol and she can use occasional ibuprofen. Will send her a script for diclofenac gel Advised gentle stretching and slow controlled leg extension exercise Call or return to office if worsening or not improving (2) CAD (coronary artery disease): Code(s): I25.10 - Atherosclerotic heart disease of [place] coronary artery without angina pectoris Category: Medical (3) SVT (supraventricular tachycardia): Code(s): I47.1 - Supraventricular tachycardia Category: Medical (4) Hyperlipidemia: Code(s): E78.5 - Hyperlipidemia, unspecified Category: Medical Plan Cardiology changed Simvastatin to Atorvastatin They will check lipids prior to her next visit with them Maintain blood pressure 130/80 or lower Follow-up with Cardiology as recommended Orders: Orders Comprehensive [place]. Panel Fast 6 Weeks Z00.00 - Encounter for general adult medical examination without abnormal findings Complete Blood Count Auto Diff 6 Weeks Z00.00 - Encounter for general adult m edical examination without abnormal findings Lipid Panel 6 Weeks Z00.00 - Encounter for general adult medical examination without abnormal findings Microalbumin, Random (w Creat) 6 Weeks I10 - Essential (primary) hypertension TSH reflex Free T4 6 Weeks Z00.00 - Encounter for general adult medical examination without abnormal findings UA CC w/rflx Micro + Cult 6 Weeks Z00.00 - Encounter for general adult medical examination without abnormal findings Medications: New diclofenac sodium 1% (Arthritis Pain (diclofenac)) apply to single knee, ankle, foot; for foot includes sole/toes/top of foot 4 grams topical BID 200 grams 2RF 30 days
--- OUTSIDE RECORDS SUMMARY | 2024-12-20 16:02 | XMS_ITS | Continuity of Care Document ---
Author Organization [facility] [address] [facility] [address] [place] [address] Phone [phone] Care Team Providers Care Underground Utility Locator Name Role Phone Gumaro Palacios MD Care Team Information Vault Service Mechanic [phone] Problems Active Problems Provider Date Hypercholesterolemia John [...] SIG Qnty Indications Order ing Provider Date Dlvmkechbqu32jk Tablets 1 by mouth every day 90tabs John Prescott M.D. 07/11/2022 Levothyroxine Mlmdzh19uvb Tablets Take 1 Tablet By Mouth Every Day Unknown Metoprolol Succinate JK658kp Tablets ER 24HR Take 1 Tablet By Mouth Every Day Gumaro Palacios MD Binaxnow Covid-19 Ag Card Home TestKit Test as Directed Today Unknown Ipimplyhqy4sq Tablets 1 by mouth every day 90tabs Unknown [facility] D753ioz (1999 Ut) Capsules take 1 tablet by [...] Appt Adama e John Prescott M.D. Created [address] [place] [address] Drive [address] [place] [address] [phone] John Prescott M.D. HYPERCHLORESTERIMIA Created [address] [place] [address] Drive [address] [place] [address] [phone]
== END ==
LOC: HO.HMCFM 15:38
PROVIDERS: PCP Family Medicine; Visit Provider Family Medicine
DX: M25.561 Pain in right knee (principal); I25.10 Atherosclerotic heart disease of native coronary artery without angina pectoris; I47.10 Supraventricular tachycardia, unspecified; E78.5 Hyperlipidemia, unspecified

== ENCOUNTER 2025-01-23 10:10 | Outpatient (REF) | payer MEDICARE, SELFPAY ==
--- OUTSIDE RECORDS SUMMARY | 2025-01-23 12:20 | XMS_ITS | Continuity of Care Document ---
Author Organization [facility] [address] [facility] [address] [place] [address] Phone [phone] Care Team Providers Care Taxicab Coordinator Name Role Phone Gumaro Palacios MD Care Team Information Head Tennis Coach [phone] Problems Active Problems Provider Date Hypercholesterolemia John [...] SIG Qnty Indications Order ing Provider Date Dajqnqsxtmb59ty Tablets 1 by mouth every day 90tabs John Prescott M.D. 07/11/2022 Levothyroxine Htcsth91ucv Tablets Take 1 Tablet By Mouth Every Day Unknown Metoprolol Succinate PX230dl Tablets ER 24HR Take 1 Tablet By Mouth Every Day Gumaro Palacios MD Binaxnow Covid-19 Ag Card Home TestKit Test as Directed Today Unknown Wxpaeinbrg7yg Tablets 1 by mouth every day 90tabs Unknown [facility] D889pts (1999 Ut) Capsules take 1 tablet by [...] Appt Adama e John Prescott M.D. Created [address] [place] [address] Drive [address] [place] [address] [phone] John Prescott M.D. HYPERCHLORESTERIMIA Created [address] [place] [address] Drive [address] [place] [address] [phone]
== END 2025-01-23 10:11 | disposition home or self-care (01) ==
LOC: HO.WFDLDS 10:10
PROVIDERS: Visit Provider Family Medicine
DX: Z13.89 Encounter for screening for other disorder (principal)

== ENCOUNTER 2025-01-23 10:11 | Outpatient (REF) | payer MEDICARE, SELFPAY ==
[2025-01-23 12:06] LABS: Alanine Aminotransferase 26 U/L (0-31); Albumin Level 4.4 g/dL (3.5-5.0); Alkaline Phosphatase 79 U/L (39-117); Aspartate Amino Transferase 29 U/L (5-31); Cholesterol 144 mg/dL (<200); HDL Cholesterol 41 mg/dL (>40); Total Protein 7.1 g/dL (6.5-8.0); Triglycerides 105 mg/dL (<150)
== END 2025-01-23 10:12 | disposition home or self-care (01) ==
LOC: HO.WFDLDS 10:11
PROVIDERS: Visit Provider Nurse Practitioner Family
DX: E78.5 Hyperlipidemia, unspecified (principal)
CPT/HCPCS: 36415; 80061; 80076